=== PATIENT | male | born 1940 | race Caucasian/White ===

== ENCOUNTER 2023-03-20 11:25 | Inpatient (IN) | payer MEDICAID, SELFPAY ==
[2023-03-20] VITALS (8 sets, daily range): BP systolic 115–168; BP diastolic 67–87; PULSE 57–70; RESP 16–24; TEMP 36.1–36.7; O2SAT 94–97; BMI 22.3
--- NOTE | 2023-03-20 11:39 | EKG12_ITS ---
Test Reason : SYNCOPE Blood Pressure : / mmHG Vent. Rate : 056 BPM Atrial Rate : 056 BPM P-R Int : 204 ms QRS Dur : 098 ms QT Int : 484 ms P-R-T Axes : 103 -45 032 degrees QTc Int : 467 ms Sinus bradycardia Left anterior fascicular block Minimal voltage criteria for LVH, may be normal variant ( R in aVL ) Abnormal ECG Confirmed by EVE PAULSON, LATOSHA ([id number]), medical editor ANNA BEST ([id number]) on 03/21/2023 11:03:46 AM Referred By: Confirmed By:LATOSHA PRADO MD
--- NOTE | 2023-03-20 11:50 | EX.ED.DYSGE1 ---
HPI History of Present Illness Chief Complaint: Syncope Informant: patient and spouse/S.O. Onset/Context/Timing Onset: Today Context: Gradual Onset Current Severity: Mild Maximum Severity: Moderate Narrative Narrative: 82-year-old [place] male history of Parkinson's disease. 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 He was not doing any work. [place] lightheaded and crawled back into the house. is here today had no complaints of pain just felt weak. He denies any headache, chest pain, shortness of breath. He denies any abdominal pain. No nausea, vomiting or diarrhea. No fever or melena. Once he got back in a house he passed out for multiple minutes. No prior history of syncopal events. No cardiac history. No recent med changes. No recent illness or hospitalization according to he and the family. Prior similar symptoms: No Recent Illness/Hospitalization: No [facility] Medical History Arthritis Bipolar 1 disorder Elbow fracture, left Hearing problem History of back problems Pelvic fracture Home Medications alprazolam 1 mg tablet 0.5 - 1 mg (0.5 - 1 x 1 mg) PO DAILY PRN anxiety #30 tabs 02/28/23 [Rx Last Taken Unknown] carbidopa 25 mg-levodopa 100 mg tablet 2 tab PO TID 02/28/23 [History Last Taken Unknown] carbidopa ER 50 mg-levodopa 200 mg tablet,extended release 1 tab PO QHS 02/28/23 [History Last Taken Unknown] escitalopram oxalate 20 mg tablet 20 mg PO DAILY #90 tabs 02/28/23 [Rx Last Taken Unknown] escitalopram oxalate 5 mg tablet 5 mg PO DAILY #90 tabs 02/28/23 [Rx Last Taken Unknown] etodolac 400 mg tablet ea PO 02/28/23 [History Last Taken Unknown] lamotrigine 200 mg tablet 200 mg PO QHS 90 days #90 tabs 02/28/23 [Rx Last Taken Unknown] levothyroxine 25 mcg tablet tablet PO 02/28/23 [History Last Taken Unknown] quetiapine 25 mg tablet 25 mg PO QHS 90 days #90 tabs 02/28/23 [Rx Last Taken Unknown] Allergy/AdvReac Type Severity Reaction Status Date / Time No Known Allergies Allergy Verified 03/20/23 11:27 Family History Other Anxiety Cancer Diabetes Myocardial infarction Social History Smoking Status: Never smoker alcohol intake: never substance use type: does not use what type of physical activity do you participate in: none ROS ROS ED ROS Narrative Patient denies recent illness Review of Systems ROS Unobtainable: Denies due to encephalopathy Constitutional Constitutional ED: Denies chills or fever(s) Eyes Eyes: Denies blurry vision ENT ENT ED: Denies ear pain Cardiovascular Cardiovascular: Denies chest pain Respiratory/Chest Respiratory/Chest: Denies cough or dyspnea Gastrointestinal Gastrointestinal: Denies abdominal pain Genitourinary Genitourinary ED: Denies dysuria or hematuria Musculoskeletal Musculoskeletal: Denies arthralgias Integumentary Denies abscess or Abrasions Neurologic Neurologic: Denies headache(s) Psychiatric Psychiatric: Denies anxiety Endocrine Endocrinology: Denies cold intolerance Hematologic/Lymphatic Hematologic/Lymphatic: Reports none Allergic/Immunologic Allergic/Immunologic ED: Denies mouth swelling or tongue swelling EXAM Physical Exam Narrative Exam Narrative: Well-appearing 82-year-old male. Vital signs stable afebrile. He does not appear septic toxic in any distress. H EENT exam unremarkable. Atraumatic. Moist with members. Neck nontender no lymphadenopathy. Lungs clear to auscultation bilaterally. Heart regular rhythm no murmur rate about 62. Chest wall nontender ribs nontender. Abdomen soft nontender. Pelvic girdle intact. Moving all 4 extremities. Nontender no edema. Neurologically is awake alert. He is answering questions and following commands. No focal motor deficits. Const Vital Signs: 03/20/23 11:29 03/20/23 11:32 03/20/23 11:35 Temperature 97.4 F L Temperature Source Temporal Pulse Rate 60 Pulse Rate [Lying] 61 Pulse Rate [Sitting (for 1 minute prior to obtaining)] 59 L Pulse Rate [Standing (for 1 minute prior to obtaining)] 66 Respiratory Rate 16 Respiratory Effort Normal Non-Labored Respiratory Pattern Normal Blood Pressure 130/67 H Blood Pressure [Lying] 128/67 H Blood Pressure [Sitting (for 1 minute prior to obtaining)] 118/76 Blood Pressure [Standing (for 1 minute prior to obtaining)] 115/68 Blood Pressure Mean 88 Blood Pressure Mean [Lying] 87 Blood Pressure Mean [Sitting (for 1 minute prior to obtaining)] 90 Blood Pressure Mean [Standing (for 1 minute prior to obtaining)] 83 Pulse Ox 97 Oxygen Delivery Method Room Air 03/20/23 11:51 Temperature Temperature Source Pulse Rate Pulse Rate [Lying] Pulse Rate [Sitting (for 1 minute prior to obtaining)] Pulse Rate [Standing (for 1 minute prior to obtaining)] Respiratory Rate Respiratory Effort Respiratory Pattern Blood Pressure Blood Pressure [Lying] Blood Pressure [Sitting (for 1 minute prior to obtaining)] Blood Pressure [Standing (for 1 minute prior to obtaining)] Blood Pressure Mean Blood Pressure Mean [Lying] Blood Pressure Mean [Sitting (for 1 minute prior to obtaining)] Blood Pressure Mean [Standing (for 1 minute prior to obtaining)] Pulse Ox Oxygen Delivery Method Room Air Positive well nourished and well developed; Negative for obese, cachectic, contractures or unkempt General Appearance ED: well developed and NAD; Negative for unkempt, cachectic, contractures, cyanotic or diaphoretic Nutritional Appearance: Negative for cachectic or obese HEENT Reports moist mucous membranes; Denies dry mucous membranes Negative for trauma or tenderness Mouth ED: No dry mucous membranes Mouth: No dry mucous membranes Eyes PERRL and EOMs intact bilaterally General Eye ED: Negative for pale conjunctiva or scleral icterus Neck no lymphadenopathy, supple and no JVD General: Negative for tenderness Lymph Lymphatic: Negative for other Chest Wall inspection of chest normal and palpation of chest normal Chest: Negative for other Resp normal respiratory effort and clear to auscultation bilaterally Effort and Inspection: Negative for retractions, pain with movement or other Auscultation: Negative for rales, rhonchi or wheezes Cardio regular rate, regular rhythm, S1 normal heart sound, S2 normal heart sound and no murmurs GI normal to inspection, nondistended, normoactive bowel sounds, non-tender, non-distended and no masses Inspection: Negative for abdominal distention Auscultation: normoactive bowel sounds Palpation: soft; Negative for tender or guarding Back/Spine no CVA tenderness General Back: Negative for CVA tenderness Cervical Spine: Negative for cervical spine tenderness Thoracic Spine / Upper Back: Negative for thoracic spinal tenderness Lumbar Spine / Lower Back: Negative for lumbar spinal tenderness Extremity normal to inspection General Extremety ED: Negative for edema or tenderness General Extremity: Negative for edema Neuro oriented x3 and CN's II-XII intact bilaterally Sensorium / Orientation: alert; Negative for orientation impaired, lethargic or stuporous Sensory Exam: No sensory level loss detected Motor Exam: strength 5/5 throughout Psych mental status grossly normal Appearance: Negative for unkempt Attitude: No agitated Mood & Affect: Negative for depressed, anxious or tearful Skin no rashes or lesions noted and no wounds General Skin Exam: elasticity normal Lesions: No lesion noted Rashes: No rashes noted Trauma: Negative for abrasion MDM MDM MDM Narrative Medical decision making narrative: 82-year-old male with a syncopal episode at home. When squad arrived he was hypotensive with a systolic blood pressure in the 80s. They gave him almost a liter of fluid and now is normotensive. Denies any complaints other than feeling lightheaded before the event. He has had no recent illness. No recent hospitalization. No prior history of syncope before. Her undergone cardiac work-up. He will most likely need to be admitted for observation to rule out dysrhythmia or other etiology. Repeat exam patient is doing well at 12:55 PM. I went over test results with him and family. I will speak to the hospitalist about admission. History & Record Review Discussion w/independent historian: Patient and Friend Additional record(s) reviewed:: Prior inpatient record, Prior outpatient record, Prior ED visit and Prior labs Lab Data Attestation: I reviewed the patient's lab results. Lab results narrative: CBC shows a white count of 6. H&H 11.9 and 33.8. Platelets are 316. Electrolytes show sodium is low of 127. Gap at 9. BUN and creatinine 23 and 1.45. Glucose 130. Troponin is normal at 7. No prior labs available in our system for comparison. Labs: Laboratory Results - last 24 hr 03/20/23 10:55 WBC 6.7 RBC 3.47 L Hgb 11.9 L Hct 33.8 L MCV 97.4 H MCH 34.3 H MCHC 35.2 RDW Std Deviation 42.7 RDW Coeff of Morena 12.0 Plt Count 316 MPV 8.8 Immature Gran % (Auto) 0.900 Neut % (Auto) 65.8 Lymph % (Auto) 14.6 L [place] % (Auto) 9.9 Eos % (Auto) 8.1 H Baso % (Auto) 0.7 Absolute Neuts (auto) 4.4 Absolute Lymphs (auto) 0.98 Nucleated RBC % 0 Sodium 127 L Potassium 4.3 Chloride 91 L Carbon Dioxide 27.0 Anion Gap 9 BUN 23 H Creatinine 1.45 H Est GFR (MDRD) Af Amer 60 Est GFR (MDRD) Non-Af 49 L BUN/Creatinine Ratio 15.9 Glucose 130 H Calcium 9.5 Troponin I High Sens 7 Radiography Chest X-Ray - ED: 1 View, Read by ED Physician, Read by Radiologist, Heart, Lungs, Mediastinum, Bony Structures, No Acute Disease and Chronic Changes Diagnostic Testing: Clinical Impression(s) from Imaging Studies Chest X-Ray 03/20/23 12:15 IMPRESSION: No active disease. Electronically Signed: Wilver Veloz MD at 12:45 EDT , Chest x-ray, portable, single view shows no acute abnormality. Normal cardiac silhouette. Normal mediastinum. Normal lung sheriff. Chronic changes. Interpreted both by myself and radiologist and we agree. Rhythm Strip Rhythm Strip: Sinus bradycardia Rate: 56 Ectopy: None EKG Initial EKG: Attestation: I personally reviewed and interpreted this EKG as follows: Interpretation: Sinus Bradycardia Comments: Sinus bradycardia rate of 56 no acute signs of ND or ischemia. Discharge Plan Triage Chief Complaint: Syncope Other Complaint: Weakness ED Provider: Lonnie Carvajal Dx/Rx/DC Orders Clinical Impression: History of Parkinson's disease, History of bipolar disorder, Acute renal insufficiency, Syncope, Acute hyponatremia Prescriptions: No Action etodolac 400 mg tablet PO Patient Comments: TAKE ONE TABLET BY MOUTH TWICE DAILY WITH meals carbidopa-levodopa 50-200 mg tablet extended release 1 tab PO QHS Patient Comments: TAKE ONE TABLET BY MOUTH AT 9PM DIRECTED levothyroxine 25 mcg tablet PO carbidopa-levodopa 25-100 mg tablet 2 tab PO TID alprazolam 1 mg tablet 0.5 - 1 mg PO DAILY PRN (Reason: anxiety) Qty: 30 2RF escitalopram oxalate 5 mg tablet 5 mg PO DAILY Qty: 90 1RF Rx Instructions: To be taken with 20 mg tablet for total daily dose of 25 mg escitalopram oxalate 20 mg tablet 20 mg PO DAILY Qty: 90 1RF Rx Instructions: To be taken with 5mg tablet for total daily dose of 25 mg lamotrigine 200 mg tablet 200 mg PO QHS 90 Days Qty: 90 1RF quetiapine 25 mg tablet 25 mg PO QHS 90 Days Qty: 90 1RF Primary Care Provider: Thiago Sharp Referrals: Thiago Sharp MD [Primary Care Provider] - Disposition Disposition: Acute Care Hospital [facility]
[2023-03-20 11:51] LABS: Absolute Lymphocyte Count 0.98 X10^3/uL (0.83-4.51); Absolute Neutrophil Count 4.4 X10^3/uL (2.0-7.7); Basophil# 0.05 X10^3/uL; Basophil% 0.7 % (0-1); Eosinophil# 0.54 X10^3/uL; Eosinophils% 8.1 % (0-5); Hematocrit 33.8 % (40-54); Hemoglobin 11.9 g/dL (13.0-16.5); Lymphocyte # 0.98 X10^3/ul (0.83-4.51); Lymphocyte % 14.6 % (19-41); Mean Corp Hgb Conc 35.2 g/dL (32-36); Mean Corpuscular Hgb 34.3 pg (27.0-32.0); Mean Corpuscular Volume 97.4 fL (80-94); Mean Platelet Vol. 8.8 fl (6.2-12.0); Monocyte# 0.66 X10^3/uL; Monocyte% 9.9 % (0-10); NRBC Flagged by Analyzer 0 % (0-5); Neutrophil % 65.8 % (47-70); Platelet Count 316 K/mm3 (150-450); RBC Distribution Width SD 42.7 fl (35.1-43.9); Red Blood Count 3.47 M/mm3 (4.6-6.2); White Blood Count 6.7 K/mm3 (4.4-11.0)
[2023-03-20 12:08] LABS: Anion Gap 9 (5-15); BUN 23 mg/dL (7-18); BUN/Creat Ratio 15.9 RATIO (10-20); Calcium,Total 9.5 mg/dL (8.5-10.1); Chloride 91 mmol/L (98-107); Creatinine, Serum 1.45 mg/dL (0.70-1.30); EST Glomerular Filtration Rate 49 mL/min (>60); Est Glom Filt Rate - Afr Amer 60 mL/min (>60); Glucose 130 mg/dL (74-106); Potassium 4.3 mmol/L (3.5-5.1); Sodium Level 127 mmol/L (136-145); Troponin-I HS 7 pg/mL (3.0-78.0)
--- NOTE | 2023-03-20 12:15 | RAD_ITS ---
STUDY: X-RAY CHEST REASON FOR EXAM: Male, 82 years old. chest pain TECHNIQUE: Single AP portable view of the chest. COMPARISON: None. FINDINGS: The lungs are clear and expanded. There is no demonstrated pleural abnormality. Normal size heart. Normal mediastinum and elan. Normal visualized pulmonary arteries. There is atherosclerotic tortuosity of the aortic arch and descending thoracic aorta. Normal visualized thoracic spine. Normal visualized ribs, clavicles, and shoulders. There is no demonstrated abnormality of the visualized soft tissue structures of the upper abdomen. RAD/Chest 1 View (Portable) IMPRESSION: No active disease. Electronically Signed: Wilver Veloz MD at 12:45 EDT ,
--- NOTE | 2023-03-20 14:06 | HP.PCM.HOS_ITS ---
HPI - General General Date of Admission: 03/20/23 Date of Service: 03/20/23 Chief Complaint: Syncopal episode HPI Narrative CHI EDWARDS, is a 82-year-old male history of Parkinson's disease and ?bipolar disorder presented to [facility] 03/20/2023 with episode of weakness and loss of consciousness. 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 EMS presented and systolic blood pressure was in the 80s and he was brought to the ED. In route he received almost 1 L and his blood pressures were within normal limits. No previous [facility] labs available but he was noted to have a sodium of 127 and a creatinine of 1.45 with a normal troponin. Hospitalist consulted for admission. Evaluated patient with family at bedside and he reports he remembers being in the field and feeling lightheaded and going down but a lot from then until he passed out was somewhat hazy. He then passed out and family anticipates this was for at least a couple minutes and then he came to and was slightly confused but began improving. Patient denied any pain other than some shoulder pain over the past several weeks when he lifts his arm but no shortness of breath or chest pain. Family bedside did report that he had labs done on Sunday through his PCPs office and they are not sure of the results but they know that he does have chronic hyponatremia though they are unsure the level and they did not get the results of the labs but will try to tomorrow. They are unaware of any kind of problem with his kidneys. They do report that he recently had his carbidopa levodopa increased from 1.5 to 2 mg 3 times a day with a dose at bedtime. Additionally he takes Xanax, Lamictal, Seroquel at bedtime and after taking the medication a couple days ago to really before bedtime had a hard time getting up and even walking to bed they report these other medications are chronic and are to help him sleep. [facility] Medical History (Updated 03/20/23 @ 17:[address] Ethel Cordon MD) Arthritis Bipolar 1 disorder Elbow fracture, left Hearing problem History of back problems Hypothyroidism Parkinson disease Pelvic fracture Home Medications alprazolam 1 mg tablet 0.5 - 1 mg (0.5 - 1 x 1 mg) PO DAILY PRN anxiety #30 tabs 02/28/23 [Rx Last Taken 03/19/23] carbidopa 25 mg-levodopa 100 mg tablet 2 tab PO TID . 02/28/23 [History Last Taken 03/20/23] carbidopa ER 50 mg-levodopa 200 mg tablet,extended release 1 tab PO QHS . 02/28/23 [History Last Taken 03/19/23] escitalopram oxalate 20 mg tablet 20 mg PO DAILY . #90 tabs 02/28/23 [Rx Last Taken 03/20/23] escitalopram oxalate 5 mg tablet 5 mg PO DAILY . #90 tabs 02/28/23 [Rx Last Taken 03/20/23] etodolac 400 mg tablet 400 mg PO BIDCM . 02/28/23 [History Last Taken 03/20/23] lamotrigine 200 mg tablet 200 mg PO QHS . 90 days #90 tabs 02/28/23 [Rx Last Taken 03/19/23] levothyroxine 25 mcg tablet 25 mcg PO DAILY THYROID 02/28/23 [History Last Taken 03/20/23] quetiapine 25 mg tablet 25 mg PO QHS . 90 days #90 tabs 02/28/23 [Rx Last Taken 03/19/23] Allergy/AdvReac Type Severity Reaction Status Date / Time No Known Allergies Allergy Verified 03/20/23 11:27 Family History Other Anxiety Cancer Diabetes Myocardial infarction Social History Smoking Status: Never smoker alcohol intake: never substance use type: does not use what type of physical activity do you participate in: none ROS ROS Narrative General: Denies fever/chills HENT: Denies headache, denies stuffy nose, denies sore throat EYES: Denies changes in vision Resp: Denies cough, denies shortness of breath Cardiac: Denies chest pain GI: Denies abdominal pain, denies changes in bowel, denies nausea/vomiting : Denies changes in urination Extremity: Denies swelling MSK: Denies weakness Neuro: Denies any numbness/tingling Heme: Denies any bleeding or bruising Skin: Denies rashes Psychiatric: No complaints voiced Vital Signs Vital Signs Vital Signs: 03/20/23 11:29 03/20/23 11:32 03/20/23 11:35 Temperature 97.4 F L Temperature Source Temporal Pulse Rate 60 Pulse Rate [Lying] 61 Pulse Rate [Sitting (for 1 minute prior to obtaining)] 59 L Pulse Rate [Standing (for 1 minute prior to obtaining)] 66 Respiratory Rate 16 Respiratory Effort Normal Non-Labored Respiratory Pattern Normal Blood Pressure 130/67 H Blood Pressure [Lying] 128/67 H Blood Pressure [Sitting (for 1 minute prior to obtaining)] 118/76 Blood Pressure [Standing (for 1 minute prior to obtaining)] 115/68 Blood Pressure Mean 88 Blood Pressure Mean [Lying] 87 Blood Pressure Mean [Sitting (for 1 minute prior to obtaining)] 90 Blood Pressure Mean [Standing (for 1 minute prior to obtaining)] 83 Pulse Ox 97 Oxygen Delivery Method Room Air 03/20/23 11:51 03/20/23 12:30 03/20/23 13:32 Temperature Temperature Source Pulse Rate 58 L 58 L Pulse Rate [Lying] Pulse Rate [Sitting (for 1 minute prior to obtaining)] Pulse Rate [Standing (for 1 minute prior to obtaining)] Respiratory Rate 19 H 24 H Respiratory Effort Respiratory Pattern Blood Pressure 161/81 H 161/87 H Blood Pressure [Lying] Blood Pressure [Sitting (for 1 minute prior to obtaining)] Blood Pressure [Standing (for 1 minute prior to obtaining)] Blood Pressure Mean 107 111 Blood Pressure Mean [Lying] Blood Pressure Mean [Sitting (for 1 minute prior to obtaining)] Blood Pressure Mean [Standing (for 1 minute prior to obtaining)] Pulse Ox Oxygen Delivery Method Room Air 03/20/23 13:32 Temperature 97 F L Temperature Source Temporal Pulse Rate 58 L Pulse Rate [Lying] Pulse Rate [Sitting (for 1 minute prior to obtaining)] Pulse Rate [Standing (for 1 minute prior to obtaining)] Respiratory Rate 17 Respiratory Effort Respiratory Pattern Blood Pressure 161/87 H Blood Pressure [Lying] Blood Pressure [Sitting (for 1 minute prior to obtaining)] Blood Pressure [Standing (for 1 minute prior to obtaining)] Blood Pressure Mean 111 Blood Pressure Mean [Lying] Blood Pressure Mean [Sitting (for 1 minute prior to obtaining)] Blood Pressure Mean [Standing (for 1 minute prior to obtaining)] Pulse Ox Oxygen Delivery Method Physical Exam Narrative General: Alert, oriented, no apparent distress HEENT: Atraumatic, normocephalic Eyes: Anicteric, normal conjunctiva, extraocular movements grossly intact Neck: Supple Respiratory: Clear to auscultation bilaterally, normal respiratory effort Cardiovascular: Regular rate and rhythm GI: Soft, nontender, nondistended Extremities: No edema Musculoskeletal: Moving all extremities Neuro: No overt focal neurological deficits Skin: No rashes appreciated Psych: Cooperative Results Lab / Micro Data 03/20/23 10:55 03/20/23 10:55 Labs: Laboratory Results - last 24 hr 03/20/23 10:55: WBC 6.7, RBC 3.47 L, Hgb 11.9 L, Hct 33.8 L, MCV 97.4 H, MCH 34.3 H, MCHC 35.2, RDW Std Deviation 42.7, RDW Coeff of Morena 12.0, Plt Count 316, MPV 8.8, Immature Gran % (Auto) 0.900, Neut % (Auto) 65.8, Lymph % (Auto) 14.6 L , [place] % (Auto) 9.9, Eos % (Auto) 8.1 H, Baso % (Auto) 0.7, Absolute Neuts (auto) 4.4, Absolute Lymphs (auto) 0.98, Nucleated RBC % 0, Sodium 127 L, Potassium 4.3, Chloride 91 L, Carbon Dioxide 27.0, Anion Gap 9, BUN 23 H, Creatinine 1.45 H, Est GFR (MDRD) Af Amer 60, Est GFR (MDRD) Non-Af 49 L, BUN/Creatinine Ratio 15.9, Glucose 130 H, Calcium 9.5, Troponin I High Sens 7 Rhythm Strip Rhythm Strip: Sinus bradycardia Rate: 56 Ectopy: None Radiology Impression Chest X-Ray 03/20/23 12:15 IMPRESSION: No active disease. Electronically Signed: Wilver Veloz MD at 12:45 EDT , Assessment & Plan Assessment/Plan (1) Syncope: (2) History of Parkinson's disease: (3) Bipolar 1 disorder: (4) Hyponatremia: PLAN: Plan #Dizziness and syncopal episode -Was found by EMS to have SBP in the 80s, given his multiple medications and his likely autonomic instability with his Parkinson's suspect that this is combi nation of medication and underlying disorder however will admit to telemetry and pursue further work-up -EKG with sinus rhythm heart rate of 56 and left anterior fascicular block, QTc 467 -Patient awake and alert in ED -Orthostats negative -We will obtain echocardiogram -Monitor for recurrence of symptoms -We will attempt to see baseline labs from PCP to assess acuity of his sodium however suspect this is chronic -Also check TSH as patient is on Synthroid #Hyponatremia -Per family this is chronic -We will try to get baseline value -Urine studies ordered for better assessment -Do not think patient needs urgent change given he is currently mentating well and there is another reason that likely explains his loss of consciousness and lightheadedness aside from hyponatremia #STEPH versus CKD -We will attempt to see what baseline creatinine is -Does not appear particularly dehydrated but had received fluids in the ED -Will give slightly more gentle hydration and recheck values in a.m. as well -If not better can further pursue work-up #Parkinson's disease -Continue home medications at this time and monitoring vitals #Bipolar disorder -Based on problem list -Does take several home medications, these have been continued at this time however would benefit from decreasing polypharmacy as this may have been a contributing factor but will rule out other etiologies first #Hypothyroidism -Suspect hypothyroidism given patient is on Synthroid, will check TSH -Continue Synthroid #DVT ppx: Lovenox subcu Ethel Cordon MD Time spent in the patient's overall evaluation,decision-making process, review of diagnostic data, adjustment of management, discussion with other providers, nursing nursing and ancillary staff involved in patient's care documentation, 60 minutes Charges/Coding Visit Charges Inpatient E&M: 24019 Init Hosp L2
--- NOTE | 2023-03-20 14:34 | ECHOD_ITS ---
Reason For Study: SYNCOPE Procedure This was a 2D Doppler, Color Flow transthoracic echocardiogram. Exam performed portable in patient room. Left Ventricle Normal LV size. The estimated ejection fraction is 65 %. No evidence for diastolic dysfunction. No regional wall motion abnormalities noted. Right Ventricle Normal RV size. Normal systolic function. Atria Normal left atrium. Normal right atrium. No doppler evidence for ASD. Mitral Valve There is no mitral valve stenosis. Trivial mitral valve insufficiency. Tricuspid Valve There is no tricuspid stenosis. Trivial tricuspid valve insufficiency. Pulmonary artery systolic pressure is 35 mmHg. Aortic Valve Trisinus/trileaflet aortic valve. Aortic sclerosis, no stenosis. There is no aortic stenosis. No aortic valve insufficiency. Pulmonic Valve There is no pulmonic valvular stenosis. No pulmonic valve insufficiency. Great Vessels Normal aortic root. Pericardium/Pleural No pericardial effusion. MMode/2D Measurements & Calculations LVIDd: 4.5 cm IVSd: 0.91 cm LVOT diam: 2.0 cm LVIDs: 3.0 cm LVPWd: 0.91 cm LVOT area: 3.1 cm2 FS: 34.0 % LAV(MOD-bp): 38.4 ml LVAd ap4: 26.7 cm2 SV(MOD-sp4): 41.8 ml LAV(MOD-bp) Indexed: 21.1 ml/m2 LVLd ap4: 7.9 cm LAV(MOD-sp2): 48.9 ml EDV(MOD-sp4): 73.4 ml LAV(MOD-sp4): 30.1 ml EDV(sp4-el): 76.4 ml LVAs ap4: 15.7 cm2 LVLs ap4: 6.8 cm ESV(MOD-sp4): 31.6 ml ESV(sp4-el): 31.1 ml EF(MOD-sp4): 56.9 % EF(sp4-el): 59.3 % SV(sp4-el): 45.3 ml LA A4 area: 12.9 cm2 LA dimension(2D): 3.4 cm RA A4 area: 13.5 cm2 Time Measurements MV dec time: 0.17 sec Doppler Measurements & Calculations MV E max hima: 81.5 cm/sec Lat Peak E' Hima: 7.3 cm/sec Med Peak E' Hima: 8.9 cm/sec MV A max hima: 67.4 cm/sec E/E' lat: 11.1 E/E' med: 9.1 MV E/A: 1.2 MV V2 max: 77.9 cm/sec Ao V2 max: 116.8 cm/sec MV max P.4 mmHg MV dec slope: 651.4 cm/sec2 Ao max P.5 mmHg MV V2 mean: 45.5 cm/sec Ao V2 mean: 82.2 cm/sec MV mean P.98 mmHg Ao mean P.1 mmHg MV V2 VTI: 33.8 cm Ao V2 VTI: 30.1 cm AV (velocity ratio): 0.68 MVA(VTI): 1.9 cm2 MARGARET(I,D): 2.1 cm2 MARGARET(V,D): 2.4 cm2 LV V1 max: 89.6 cm/sec SV(LVOT): 63.4 ml TR max hima: 276.9 cm/sec LV V1 max P.2 mmHg TR max P.7 mmHg LV V1 mean P.7 mmHg LV V1 mean: 61.1 cm/sec LV V1 VTI: 20.5 cm ECHO/Echo Complete Interpretation Summary The estimated ejection fraction is 65 %. No evidence for diastolic dysfunction. Trivial mitral valve insufficiency. Ordering Physician: Ethel Cordon Referring Physician: Thiago Sharp M.D. Performed By: Brinda Armstrong RCS
[2023-03-20] MEDS: 0.9% Normal Saline 1,000 ML 100 ML IV (14:48)
[2023-03-20] MEDS: Carbidopa/Levodopa 25/100 Tablet PO (17:07)
[2023-03-20 20:44] LABS: Bacteria 0 SEEN /hpf (None Seen); Mucous, Urine 0 SEEN /hpf (<or=2+); Red Blood Cells-Urine 0 SEEN /hpf (0-5); Squamous Epithelial Cells - UA 0 SEEN /hpf (0-5); White Blood Cells 0 SEEN /hpf (0-5)
[2023-03-20 20:51] LABS: Color, Urine Yellow (Yellow); Glucose, Dipstick Normal (Normal); Ketone-Dipstick Negative (Negative); Leukocyte Esterase-Dipstick Negative /ul (Negative); Nitrite-Dipstick Negative (Negative); Occult Blood-Urine Negative /ul (Negative); Protein-Dipstick Negative (Negative); Urine Clarity Clear (Clear); Urine Urobilinogen Normal (Normal)
[2023-03-20 20:54] LABS: Urea Nitrogen, Urine 356 mg/dL (NO RANGE EST.); Urine Chloride 103 mmol/L (Not Establ.); Urine Sodium 83 mmol/L (Not Establ.)
[2023-03-20 21:00] LABS: Urine Bilirubin Dipstick 3 mg/dL (Negative)
[2023-03-20 21:09] LABS: Osmolality, Urine 390 mOsm/KG
[2023-03-20] MEDS: CARBIDOPA/LEVODOPA CR 50/200 Tablet PO (21:12)
[2023-03-20] MEDS: lamoTRIgine 100 MG Tablet 200 MG PO (21:12)
[2023-03-20] MEDS: QUEtiapine 25 MG Tablet PO (21:12)
[2023-03-21 03:00] VITALS: BP 119/71; PULSE 57; RESP 16; TEMP 36.7; O2SAT 92
[2023-03-21] MEDS: Carbidopa/Levodopa 25/100 Tablet PO ×3 (05:15→17:37)
[2023-03-21] MEDS: Levothyroxine 25 MCG TABLET PO (05:15)
[2023-03-21 05:17] VITALS: BMI 22.6
[2023-03-21 05:52] LABS: Absolute Lymphocyte Count 0.96 X10^3/uL (0.83-4.51); Absolute Neutrophil Count 4.4 X10^3/uL (2.0-7.7); Basophil# 0.04 X10^3/uL; Basophil% 0.6 % (0-1); Eosinophils% 6.1 % (0-5); Hematocrit 31.1 % (40-54); Hemoglobin 10.9 g/dL (13.0-16.5); Lymphocyte # 0.96 X10^3/ul (0.83-4.51); Lymphocyte % 14.5 % (19-41); Mean Corpuscular Hgb 33.9 pg (27.0-32.0); Mean Corpuscular Volume 96.6 fL (80-94); Mean Platelet Vol. 8.7 fl (6.2-12.0); Monocyte# 0.81 X10^3/uL; Monocyte% 12.3 % (0-10); NRBC Flagged by Analyzer 0 % (0-5); Neutrophil # 4.35 X10^3/uL (2.7-7.7); Neutrophil % 65.9 % (47-70); Platelet Count 269 K/mm3 (150-450); RBC Distribution Width CV 11.9 % (11.6-14.6); RBC Distribution Width SD 41.7 fl (35.1-43.9); Red Blood Count 3.22 M/mm3 (4.6-6.2); White Blood Count 6.6 K/mm3 (4.4-11.0)
[2023-03-21 07:04] LABS: AST(SGOT) 13 U/L (15-37); Alanine Aminotransfer ALT/SGPT < 6 U/L (16-61); Albumin, Serum 2.8 g/dL (3.2-5.0); Alkaline Phosphatase 61 U/L (45-117); Anion Gap 5 (5-15); BUN 20 mg/dL (7-18); BUN/Creat Ratio 18.5 RATIO (10-20); Bilirubin, Direct 0.18 mg/dL (0.00-0.30); Calcium,Total 8.6 mg/dL (8.5-10.1); Chloride 94 mmol/L (98-107); Creatinine, Serum 1.08 mg/dL (0.70-1.30); EST Glomerular Filtration Rate 69 mL/min (>60); Est Glom Filt Rate - Afr Amer 84 mL/min (>60); Estimated Creatinine Clearance 51.84 ml/min; Globulin 3.9 g/dL (2.2-4.2); Glucose 97 mg/dL (74-106); Magnesium 1.6 mg/dL (1.6-2.6); Potassium 4.1 mmol/L (3.5-5.1); Protein, Total 6.7 g/dL (6.4-8.2); Sodium Level 126 mmol/L (136-145); T4 Free Direct 1.11 ng/dL (0.76-1.46); Thyroid Stim Hormone (TSH) 4.04 uIU/mL (0.358-3.74)
[2023-03-21 08:31] LABS: Osmolality, Serum 266 mOsm/KG (280-301)
[2023-03-21 09:30] VITALS: BP 150/85; PULSE 67; RESP 16; TEMP 36.9; O2SAT 99
[2023-03-21 09:39] VITALS: BP 137/86; BP 150/85; BP 156/88; PULSE 66; PULSE 71; PULSE 80
--- NOTE | 2023-03-21 11:38 | PN.HOSP_ITS ---
Reason for Visit Reason for Visit: Diagnoses Hypo-osmolality and hyponatremia (03/20/23) Bipolar disorder, unspecified (03/20/23) Syncope and collapse (03/20/23) Personal history of other diseases of the nervous system and sense organs (03/20/23) Subjective Subjective Patient with no acute complaints today and denies chest pain, shortness of dori ath, fluttering in chest. Did have difficulty eating banana earlier and was made n.p.o. with speech eval Objective Data Objective Data Vital Signs: Vital Signs Temp Pulse Resp BP Pulse Ox O2 Del Method 98.1 F 80 16 137/86 H 92 Room Air 03/21/23 03:00 03/21/23 09:39 03/21/23 03:00 03/21/23 09:39 03/21/23 03:00 03/21/23 03:00 Oxygen Delivery Method Room Air Weight: 69.5 kg Body Mass Index (BMI) 22.6 Intake & Output: Intake and Output for Last 24 Hours 03/19/23 03/20/23 03/21/23 23:59 23:59 23:59 Intake Total 240 / 240 1733.33 / 1733.33 Output Total 650 / 650 675 / 675 Balance -410 / -410 1058.33 / 1058.33 Lab / Micro Data 03/21/23 05:41 03/21/23 05:41 Labs: Laboratory Results - last 24 hr 03/20/23 10:55: WBC 6.7, RBC 3.47 L, Hgb 11.9 L, Hct 33.8 L, MCV 97.4 H, MCH 34.3 H, MCHC 35.2, RDW Std Deviation 42.7, RDW Coeff of Morena 12.0, Plt Count 316, MPV 8.8, Immature Gran % (Auto) 0.900, Neut % (Auto) 65.8, Lymph % (Auto) 14.6 L , [place] % (Auto) 9.9, Eos % (Auto) 8.1 H, Baso % (Auto) 0.7, Absolute Neuts (auto) 4.4, Absolute Lymphs (auto) 0.98, Nucleated RBC % 0, Sodium 127 L, Potassium 4.3, Chloride 91 L, Carbon Dioxide 27.0, Anion Gap 9, BUN 23 H, Creatinine 1.45 H, Est GFR (MDRD) Af Amer 60, Est GFR (MDRD) Non-Af 49 L, BUN/Creatinine Ratio 15.9, Glucose 130 H, Calcium 9.5, Troponin I High Sens 7 03/20/23 20:30: Urine Color Yellow, Urine Clarity Clear, Urine pH 7.0, Ur Specific Palmer 1.010, Urine Protein Negative, Urine Glucose (UA) Normal, Urine Ketones Negative, Urine Occult Blood Negative, Urine Nitrite Negative, Urine Bilirubin 3 H, Urine Urobilinogen Normal, Ur Leukocyte Esterase Negative, Urine RBC 0 SEEN, Urine WBC 0 SEEN, Ur Squamous Epith Cells 0 SEEN, Urine Bacteria 0 SEEN, Urine Mucus 0 SEEN, Urine Osmolality 390, Ur Random Sodium 83, Urine Creatinine 44.40, Urine Potassium 40.0, Urine Chloride 103, Urine Urea Nitrogen 356 03/21/23 05:41: WBC 6.6, RBC 3.22 L, Hgb 10.9 L, Hct 31.1 L, MCV 96.6 H, MCH 33.9 H, MCHC 35.0, RDW Std Deviation 41.7, RDW Coeff of Morena 11.9, Plt Count 269, MPV 8.7, Immature Gran % (Auto) 0.600, Neut % (Auto) 65.9, Lymph % (Auto) 14.5 L , [place] % (Auto) 12.3 H, Eos % (Auto) 6.1 H, Baso % (Auto) 0.6, Absolute Neuts (auto) 4.4, Absolute Lymphs (auto) 0.96, Nucleated RBC % 0, Sodium 126 L, Potassium 4.1, Chloride 94 L, Carbon Dioxide 27.0, Anion Gap 5, BUN 20 H, Creatinine 1.08, Estim Creat Clear Calc 51.84, Est GFR (MDRD) Af Amer 84, Est GFR (MDRD) Non-Af 69, BUN/Creatinine Ratio 18.5, Glucose 97, Serum Osmolality 266 L, Calcium 8.6, Magnesium 1.6, Total Bilirubin 0.70, Direct Bilirubin 0.18, AST 13 L, ALT < 6 L, Alkaline Phosphatase 61, Total Protein 6.7, Albumin 2.8 L, Globulin 3.9, TSH 4.04 H, Free T4 1.11, Cortisol 19.90 Radiography Diagnostic Testing: Radiology Impression Chest X-Ray 03/20/23 12:15 IMPRESSION: No active disease. Electronically Signed: Wilver Veloz MD at 12:45 EDT , Rhythm Strip Rhythm Strip: Sinus bradycardia Rate: 56 Ectopy: None Physical Exam Narrative General: Alert, no apparent distress HEENT: Atraumatic, normocephalic Eyes: Anicteric, normal conjunctiva, extraocular movements grossly intact Neck: Supple Respiratory: Clear to auscultation bilaterally, normal respiratory effort Cardiovascular: Regular rate and rhythm at time of exam GI: Soft, nontender, nondistended Extremities: No edema Musculoskeletal: Moving all extremities Neuro: No overt focal neurological deficits Skin: No rashes appreciated Psych: Cooperative Assessment & Plan Assessment/Plan (1) Syncope: (2) History of Parkinson's disease: (3) Bipolar 1 disorder: (4) Hyponatremia: PLAN: Plan #Dizziness and syncopal episode -Was found by EMS to have SBP in the 80s, given his multiple medications and his likely autonomic instability with his Parkinson's suspect that this is combination of medication and underlying disorder however will admit to telemetry and pursue further work-up -EKG with sinus rhythm heart rate of 56 and left anterior fascicular block, QTc 467 -Patient awake and alert in ED -Orthostats negative -We will obtain echocardiogram -Monitor for recurrence of symptoms -We will attempt to see baseline labs from PCP to assess acuity of his sodium however suspect this is chronic -Also check TSH as patient is on Synthroid -03/21: Patient with some intermittent bradycardia and what appears to be sinus arrhythmia on telemetry overnight, patient reports being asymptomatic, has had no further presyncopal or syncopal episodes and symptoms did not recur with standing. PT/OT eval's. Awaiting echocardiogram, continue to monitor on telemetry, will likely need 30-day monitor on discharge #Hyponatremia -Per family this is chronic -We will try to get baseline value -Urine studies ordered for better assessment -Do not think patient needs urgent change given he is currently mentating well and there is another reason that likely explains his loss of consciousness and lightheadedness aside from hyponatremia -03/21: Slight decrease in sodium to 126 today. Serum osmolality was 266, TSH 4.04 but with free T4.11. Cortisol 19.9. UA unremarkable, urine osmole's 390 with a urine sodium of 83. 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 as well -If not better can further pursue work-up -03/21: Improved with fluids, continue to hold etodolac #Parkinson's disease -Continue home medications at this time and monitoring vitals #Bipolar disorder -Based on problem list -Does take several home medications, these have been continued at this time however would benefit from decreasing polypharmacy as this may have been a c ontributing factor but will rule out other etiologies first #Hypothyroidism -Suspect hypothyroidism given patient is on Synthroid, will check TSH -Continue Synthroid -03/21: TSH very slightly elevated but free T4 within normal limits, continue current Synthroid dose #DVT ppx: Lovenox subcu Ethel Cordon MD Time spent in the patient's overall evaluation,decision-making process, review of diagnostic data, adjustment of management, discussion with other providers, nursing nursing and ancillary staff involved in patient's care documentation, 37 minutes Charges/Coding Visit Charges Inpatient E&M: 13402 Subs Hosp L3
[2023-03-21] MEDS: Escitalopram Oxalate 10 MG Tablet 5 MG PO (13:05)
[2023-03-21] MEDS: Escitalopram Oxalate 20 MG Tablet PO (13:06)
[2023-03-21] MEDS: Enoxaparin 40 MG/0.4 ML Syringe SC (13:06)
--- NOTE | 2023-03-21 15:23 | CASEMGMT ---
RN?CM?RADIATION CONTROL SPECIALIST?CM?to room to meet with patient and family for initial transition planning/care coordination?assessment.?RN?CM?introduced self and role at [facility].? Pt and family voice understanding and consent to?assessment?at this time.? Pt resting in bed in no distress at this time.? Pt is A/O at this time, but is SAXMAN. , Angelita, and dtr, Michelle, @ bedside and provided most of the following information.? Care providers, pharmacy, and demographics verified/updated at this time. PCP: Dr Hernandez Specialists: Dr Ruiz-neuro. Dr Bojorquez-psychiatry Preferred Pharmacy: [facility] Retail Insurance: [employer] Prescription Benefit:?yes Living Will/HPOA:?Pt does not currently have LW/HCPOA LNOK: , Angelita. Dtr, Michelle. Dtr, Jaylin. Living Arrangements: Lives w/ and dtr, Michelle, in one-story home w/one small step to enter. @ baseline, pt uses cane and is indep w/ADL's. manages meds and sets up weekly pill containers. [place] [employer] manages appts. Family does grocery shopping, meals, and home mgnt tasks. Transportation: Hire drivers. DME: Has the following DME:?cane and grab bars. Also has a walker, but does not use. Dtr, Michelle, states pt very shaky/unsteady today and she is concerned about pt being able to get into his home @ discharge, stating he has a distance to walk on the sidewalk from the driveway to the house. Michelle asking about pt getting a W/C. RN CM spoke w/PT, Lorraine, who states a WC would be beneficial for pt for longer distances for pt's safety. HHC/SNF: No hx of either. Discussed options of RU/SNF and HHC. Initially dtr states they would like to try and take pt home and would like [facility] HHC and declined wanting list of other HHC options at this time. Then, upon further discussion, Michelle and state they may be interested in [facility] RU and decline wanting list of other RU/SNF options at this time. Michelle states they will discuss RU w/pt and with the family tonight. [place] states she will not coming back in tomorrow and asks for RN CM to f/u with pt's dtr, Jaylin, who will be coming in tomorrow, re: pt/family's decision at that time. CM?to follow for any further discharge planning/needs.? Pt and family voice no further concerns/needs at this time.? PLAN:??TBD. [facility] vs [facility] and a W/C. Nick BSN?RN?CM
[2023-03-21 15:46] VITALS: BP 119/72; PULSE 66; RESP 16; TEMP 36.6; O2SAT 100
[2023-03-21] MEDS: QUEtiapine 25 MG Tablet PO (21:47)
[2023-03-21] MEDS: lamoTRIgine 100 MG Tablet 200 MG PO (21:47)
[2023-03-21] MEDS: CARBIDOPA/LEVODOPA CR 50/200 Tablet PO (21:49)
[2023-03-21 21:50] VITALS: BP 132/76; PULSE 58; RESP 18; TEMP 36.7; O2SAT 99
[2023-03-22 05:23] VITALS: BMI 22.5
[2023-03-22] MEDS: Levothyroxine 25 MCG TABLET PO (05:38)
[2023-03-22] MEDS: Carbidopa/Levodopa 25/100 Tablet PO ×3 (05:38→15:56)
[2023-03-22 07:10] LABS: Anion Gap 9 (5-15); BUN 15 mg/dL (7-18); BUN/Creat Ratio 15.9 RATIO (10-20); Calcium,Total 8.7 mg/dL (8.5-10.1); Chloride 91 mmol/L (98-107); Creatinine, Serum 0.94 mg/dL (0.70-1.30); EST Glomerular Filtration Rate 81 mL/min (>60); Est Glom Filt Rate - Afr Amer 98 mL/min (>60); Estimated Creatinine Clearance 59.39 ml/min; Glucose 103 mg/dL (74-106); Potassium 3.4 mmol/L (3.5-5.1); Sodium Level 125 mmol/L (136-145)
[2023-03-22 09:00] VITALS: BP 140/83; PULSE 60; RESP 18; TEMP 36.7; O2SAT 95
[2023-03-22] MEDS: Enoxaparin 40 MG/0.4 ML Syringe SC (10:08)
[2023-03-22] MEDS: Escitalopram Oxalate 10 MG Tablet 5 MG PO (10:08)
[2023-03-22] MEDS: Escitalopram Oxalate 20 MG Tablet PO (10:08)
[2023-03-22] MEDS: Potassium Chloride 10mEq/100mL 10 MEQ/100 ML IV.SOLN. 100 MEQ IV BOLUS ×2 (10:09→11:39)
[2023-03-22] MEDS: 0.9% Saline Lock 10 ML Syringe IV ×2 (10:34→11:39)
--- NOTE | 2023-03-22 12:46 | CASEMGMT ---
SW checked with [facility] Acute Rehab and they are full. SW met with patient, his , and daughter. SW introduced self and role at [facility]. SW asked about d/c plan and patient's said she was hoping patient could go to the Rehab Unit at [facility]. SW let patient and family know that there are no openings on the Acute Rehab Unit. SW explained that the next closest rehab unit would be in [place] or SW could give them a list of senior living facilities that accept patient's insurance. Family requested a list of senior living facilities. ERNESTO asked Lakisha d/c materials planning manager to please prepare a list for patient and family. Maggie Bourgeois INTERNAL COMMUNICATIONS MANAGER STEVE
--- NOTE | 2023-03-22 13:01 | CASEMGMT ---
Discharge Planning SNF list created and given to SW. Lakisha Wylie, Discharge Planning Asst.
--- NOTE | 2023-03-22 13:04 | CASEMGMT ---
SW provided patient and family with a list of snf facility providers including quality and resource use data and consistent with patient?s preferred geographic region, medical needs, and insurance network were provided from the [employer] Guide. SW explained they will need to pick a few facilities they would be okay with and SW will contact facilities to check on bed availability. SW told them SW will check back. Maggie Bourgeois HADOOP ADMINISTRATOR STEVE
--- NOTE | 2023-03-22 13:10 | PN.HOSP_ITS ---
Reason for Visit Reason for Visit: Diagnoses Hypo-osmolality and hyponatremia (03/20/23) Bipolar disorder, unspecified (03/20/23) Syncope and collapse (03/20/23) Personal history of other diseases of the nervous system and sense organs (03/20/23) Subjective Subjective Patient reports feeling fairly well today but has been still feeling somewhat weak all over, patient and family open to SNF for rehab Objective Data Objective Data Vital Signs: Vital Signs Temp Pulse Resp BP Pulse Ox O2 Del Method 98.1 F 60 18 140/83 H 95 Room Air 03/22/23 09:00 03/22/23 09:00 03/22/23 09:00 03/22/23 09:00 03/22/23 09:00 03/22/23 09:00 Oxygen Delivery Method Room Air Weight: 69.3 kg Body Mass Index (BMI) 22.5 Intake & Output: Intake and Output for Last 24 Hours 03/20/23 03/21/23 03/22/23 23:59 23:59 23:59 Intake Total 240 / 240 2633.33 / 2633.33 500 / 500 Output Total 650 / 650 2100 / 2700 900 / 900 Balance -410 / -410 533.33 / -66.67 -400 / -400 Lab / Micro Data 03/21/23 05:41 03/22/23 06:35 Labs: Laboratory Results - last 24 hr 03/22/23 06:35: Sodium 125 L, Potassium 3.4 L, Chloride 91 L, Carbon Dioxide 25.0, Anion Gap 9, BUN 15, Creatinine 0.94, Estim Creat Clear Calc 59.39, Est GFR (MDRD) Af Amer 98, Est GFR (MDRD) Non-Af 81, BUN/Creatinine Ratio 15.9, Glucose 103, Calcium 8.7 Radiography Diagnostic Testing: Radiology Impression Echocardiogram 03/20/23 14:34 Interpretation Summary The estimated ejection fraction is 65 %. No evidence for diastolic dysfunction. Trivial mitral valve insufficiency. Ordering Physician: Ethel Cordon Referring Physician: Thiago Sharp M.D. Performed By: Brinda Armstrong RCS Rhythm Strip Rhythm Strip: Sinus bradycardia Rate: 56 Ectopy: None Physical Exam Narrative General: Alert, no apparent distress HEENT: Atraumatic, normocephalic Eyes: Anicteric, normal conjunctiva, extraocular movements grossly intact Neck: Supple Respiratory: Clear to auscultation bilaterally, normal respiratory effort Cardiovascular: Regular rate and rhythm at time of exam GI: Soft, nontender, nondistended Extremities: No edema Musculoskeletal: Moving all extremities Neuro: No overt focal neurological deficits Skin: No rashes appreciated Psych: Cooperative Assessment & Plan Assessment/Plan (1) Syncope: (2) History of Parkinson's disease: (3) Bipolar 1 disorder: (4) Hyponatremia: PLAN: Plan #Dizziness and syncopal episode -Was found by EMS to have SBP in the 80s, given his multiple medications and his likely autonomic instability with his Parkinson's suspect that this is combination of medication and underlying disorder however will admit to telemetry and pursue further work-up -EKG with sinus rhythm heart rate of 56 and left anterior fascicular block, QTc 467 -Patient awake and alert in ED -Orthostats negative -We will obtain echocardiogram -Monitor for recurrence of symptoms -We will attempt to see baseline labs from PCP to assess acuity of his sodium ho wever suspect this is chronic -Also check TSH as patient is on Synthroid -03/21: Patient with some intermittent bradycardia and what appears to be sinus arrhythmia on telemetry overnight, patient reports being asymptomatic, has had no further presyncopal or syncopal episodes and symptoms did not recur with standing. PT/OT eval's. Awaiting echocardiogram, continue to monitor on telemetry, will likely need 30-day monitor on discharge -03/22: Echocardiogram unrevealing, patient will have intermittent heart rates in 50s but no long pauses or sustained low heart rates with symptoms, blood pressure has been stable here. Suspect that, especially given prolonged period of dizziness with ultimate syncopal episode and patient found to be hypotensive that this was either arrhythmia or hypotension related incident fact it was hypotension secondary to autonomic dysfunction due to his Parkinson's and d ehydration given his STEPH. Patient has had no further episodes, the Xanax has been held here but due to risk for decompensation have continued his other home psychiatric medications but this has not seemed to negatively impact him at this time. Will likely need 30-day monitor on DC #Hyponatremia -Per family this is chronic -We will try to get baseline value -Urine studies ordered for better assessment -Do not think patient needs urgent change given he is currently mentating well and there is another reason that likely explains his loss of consciousness and lightheadedness aside from hyponatremia -03/21: Slight decrease in sodium to 126 today. Serum osmolality was 266, TSH 4.04 but with free T4.11. Cortisol 19.9. UA unremarkable, urine osmole's 390 with a urine sodium of 83. 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 as well -If not better can further pursue work-up -03/21: Improved with fluids, continue to hold etodolac -03/22: Creatinine 1.45 on presentation is trended down to 0.94 #Parkinson's disease -Continue home medications at this time and monitoring vitals #Bipolar disorder -Based on problem list -Does take several home medications, these have been continued at this time however would benefit from decreasing polypharmacy as this may have been a contributing factor but will rule out other etiologies first -03/22: Holding Xanax, other home medications have been continued and patient has not had recurrence of symptoms #Hypothyroidism -Suspect hypothyroidism given patient is on Synthroid, will check TSH -Continue Synthroid -03/21: TSH very slightly elevated but free T4 within normal limits, continue current Synthroid dose #DVT ppx: Lovenox subcu Ethel Cordon, MD Charges/Coding Visit Charges Inpatient E&M: 33584 Subs Hosp L2
[2023-03-22 15:00] VITALS: BP 145/85; PULSE 65; RESP 16; TEMP 37; O2SAT 97
--- NOTE | 2023-03-22 15:50 | CASEMGMT ---
Discharge Planning Referral sent to both [facility] and [facility] via [facility]. Lakisha Wylie, Discharge Planning Asst.
[2023-03-22] MEDS: Acetaminophen 325 MG Tablet 650 MG PO (19:42)
[2023-03-22 21:00] VITALS: BP 153/94; PULSE 77; RESP 16; TEMP 36.6; O2SAT 94
[2023-03-22] MEDS: lamoTRIgine 100 MG Tablet 200 MG PO (21:13)
[2023-03-22] MEDS: QUEtiapine 25 MG Tablet PO (21:14)
[2023-03-22 22:00] VITALS: PULSE 65
[2023-03-22] MEDS: CARBIDOPA/LEVODOPA CR 50/200 Tablet PO (22:27)
[2023-03-22] MEDS: ALPRAZolam 0.5 MG Tablet PO (22:27)
[2023-03-23 03:00] VITALS: BP 106/71; PULSE 65; RESP 16; TEMP 36.1; O2SAT 95
[2023-03-23 06:00] VITALS: BMI 22.7
[2023-03-23] MEDS: Levothyroxine 25 MCG TABLET PO (06:21)
[2023-03-23] MEDS: Carbidopa/Levodopa 25/100 Tablet PO ×3 (06:21→17:06)
[2023-03-23 07:14] LABS: Anion Gap 6 (5-15); BUN 14 mg/dL (7-18); Calcium,Total 8.6 mg/dL (8.5-10.1); Chloride 89 mmol/L (98-107); Creatinine, Serum 1.08 mg/dL (0.70-1.30); EST Glomerular Filtration Rate 69 mL/min (>60); Est Glom Filt Rate - Afr Amer 84 mL/min (>60); Estimated Creatinine Clearance 52.14 ml/min; Glucose 113 mg/dL (74-106); Sodium Level 123 mmol/L (136-145)
[2023-03-23 09:00] VITALS: BP 129/76; PULSE 60; RESP 18; TEMP 36.9; O2SAT 97
[2023-03-23] MEDS: Escitalopram Oxalate 20 MG Tablet PO (09:16)
[2023-03-23] MEDS: Enoxaparin 40 MG/0.4 ML Syringe SC (09:17)
[2023-03-23] MEDS: Escitalopram Oxalate 10 MG Tablet 5 MG PO (09:17)
[2023-03-23 10:08] LABS: Osmolality, Serum 259 mOsm/KG (280-301)
--- NOTE | 2023-03-23 10:20 | CASEMGMT ---
Both [facility] patient. SW spoke with patient and his family and they decided to go with [facility]. ERNESTO explained patient will stay in the hospital until insurance approves him to go to SNF. ERNESTO explained patient could possibly be at [facility] through the weekend. Plan: [facility] pending pre-cert. Maggie WILSON
--- NOTE | 2023-03-23 10:23 | CASEMGMT ---
Discharge Planning Patient has chosen [facility]. Updates sent via [employer] and asked that pre-cert be submitted. [facility] notified that patient has chosen another provider. Lakisha Wylie, Discharge Planning Asst.
[2023-03-23 15:00] VITALS: BP 122/70; PULSE 64; RESP 18; TEMP 37.1
--- NOTE | 2023-03-23 15:07 | CASEMGMT ---
Patient was approved to go to [facility]. ERNESTO notified physician and family. SW completed PASRR on patient in [facility] system. Plan: d/c to [facility] under skilled level of care on a PASRR level of care. Maggie Bourgeois AIRPORT MAINTENANCE CHIEF STEVE
--- NOTE | 2023-03-23 15:21 | PN.HOSP_ITS ---
Reason for Visit Reason for Visit: Diagnoses Hypo-osmolality and hyponatremia (03/20/23) Bipolar disorder, unspecified (03/20/23) Syncope and collapse (03/20/23) Personal history of other diseases of the nervous system and sense organs (03/20/23) Subjective Subjective Feeling somewhat more tired today but received a Xanax overnight, did report a slight catch when he would take a deep breath on the upper left side of his chest that comes and goes but denies any other chest pain, dizziness, lightheadedness, shortness of breath or cough Objective Data Objective Data Vital Signs: Vital Signs Temp Pulse Resp BP Pulse Ox O2 Del Method 97.0 F L 65 16 106/71 95 Room Air 03/23/23 03:00 03/23/23 03:00 03/23/23 03:00 03/23/23 03:00 03/23/23 03:00 03/23/23 03:00 Oxygen Delivery Method Room Air Weight: 69.9 kg Body Mass Index (BMI) 22.7 Intake & Output: Intake and Output for Last 24 Hours 03/21/23 03/22/23 03/23/23 23:59 23:59 23:59 Intake Total 2633.33 / 2633.33 600 / 600 Output Total 2100 / 2700 1200 / 1400 300 / 300 Balance 533.33 / -66.67 -600 / -800 -300 / -300 Lab / Micro Data 03/21/23 05:41 03/23/23 06:11 Labs: Laboratory Results - last 24 hr 03/23/23 06:11: Sodium 123 L, Potassium 4.0, Chloride 89 L, Carbon Dioxide 28.0, Anion Gap 6, BUN 14, Creatinine 1.08, Estim Creat Clear Calc 52.14, Est GFR (MDRD) Af Amer 84, Est GFR (MDRD) Non-Af 69, BUN/Creatinine Ratio 13.0, Glucose 113 H, Serum Osmolality 259 L, Calcium 8.6 Rhythm Strip Rhythm Strip: Sinus bradycardia Rate: 56 Ectopy: None Physical Exam Narrative General: Alert, no apparent distress HEENT: Atraumatic, normocephalic Eyes: Anicteric, normal conjunctiva, extraocular movements grossly intact Neck: Supple Respiratory: Clear to auscultation bilaterally, normal respiratory effort Cardiovascular: Regular rate and rhythm at time of exam GI: Soft, nontender, nondistended Extremities: No edema Musculoskeletal: Moving all extremities Neuro: No overt focal neurological deficits Skin: No rashes appreciated Psych: Cooperative Assessment & Plan Assessment/Plan (1) Syncope: (2) History of Parkinson's disease: (3) Bipolar 1 disorder: (4) Hyponatremia: PLAN: Plan #Dizziness and syncopal episode -Was found by EMS to have SBP in the 80s, given his multiple medications and his likely autonomic instability with his Parkinson's suspect that this is combination of medication and underlying disorder however will admit to tel emetry and pursue further work-up -EKG with sinus rhythm heart rate of 56 and left anterior fascicular block, QTc 467 -Patient awake and alert in ED -Orthostats negative -We will obtain echocardiogram -Monitor for recurrence of symptoms -We will attempt to see baseline labs from PCP to assess acuity of his sodium however suspect this is chronic -Also check TSH as patient is on Synthroid -03/21: Patient with some intermittent bradycardia and what appears to be sinus arrhythmia on telemetry overnight, patient reports being asymptomatic, has had no further presyncopal or syncopal episodes and symptoms did not recur with standing. PT/OT eval's. Awaiting echocardiogram, continue to monitor on tel emetry, will likely need 30-day monitor on discharge -03/22: Echocardiogram unrevealing, patient will have intermittent heart rates in 50s but no long pauses or sustained low heart rates with symptoms, blood pressure has been stable here. Suspect that, especially given prolonged period of dizziness with ultimate syncopal episode and patient found to be hypotensive that this was either arrhythmia or hypotension related incident fact it was hypotension secondary to autonomic dysfunction due to his Parkinson's and dehydration given his STEPH. Patient has had no further episodes, the Xanax has been held here but due to risk for decompensation have continued his other home psychiatric medications but this has not seemed to negatively impact him at this time. Will likely need 30-day monitor on DC -03/23: Patient has had no further episodes, 30-day monitor DC, would advise against Xanax at all possible as this may contribute to low blood pressure #Hyponatremia -Per family this is chronic -We will try to get baseline value -Urine studies ordered for better assessment -Do not think patient needs urgent change given he is currently mentating well and there is another reason that likely explains his loss of consciousness and lightheadedness aside from hyponatremia -03/21: Slight decrease in sodium to 126 today. Serum osmolality was 266, TSH 4.04 but with free T4.11. Cortisol 19.9. UA unremarkable, urine osmole's 390 with a urine sodium of 83. 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 -03/22: Sodium 125 today, review of outlying facility records show sodium of 126 recently, will start fluid restriction and trend BMP, may need change in psychiatric medication regimen if this does not improve but would prefer to defer to physician who will be following him and making further adjustments and monitoring -03/23: Did downtrend further, repeating urine studies, discussed that we may need to taper off his Lexapro pending results. 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 as well -If not better can further pursue work-up -03/21: Improved with fluids, continue to hold etodolac -03/22: Creatinine 1.45 on presentation is trended down to 0.94 -03/23: Overall stable #Parkinson's disease -Continue home medications at this time and monitoring vitals #Bipolar disorder -Based on problem list -Does take several home medications, these have been continued at this time however would benefit from decreasing polypharmacy as this may have been a contributing factor but will rule out other etiologies first -03/22: Holding Xanax, other home medications have been continued and patient has not had recurrence of symptoms -03/23: Was given Xanax last night and was more sleepy today, will decrease dose to make as needed however would be best to avoid this if possible #Hypothyroidism -Suspect hypothyroidism given patient is on Synthroid, will check TSH -Continue Synthroid -03/21: TSH very slightly elevated but free T4 within normal limits, continue current Synthroid dose #DVT ppx: Lovenox subcu Ethel Cordon MD Charges/Coding Visit Charges Inpatient E&M: 65519 Subs Hosp L2
[2023-03-23] MEDS: Polyethylene Glycol 3350 17 GM PACKET PO (17:07)
[2023-03-23] MEDS: Acetaminophen 325 MG Tablet 650 MG PO (18:50)
--- NOTE | 2023-03-23 18:56 | EKG12_ITS ---
Test Reason : CHEST PAIN Blood Pressure : / mmHG Vent. Rate : 064 BPM Atrial Rate : 064 BPM P-R Int : 184 ms QRS Dur : 098 ms QT Int : 444 ms P-R-T Axes : 060 -45 027 degrees QTc Int : 458 ms Sinus rhythm with Premature atrial complexes with Aberrant conduction Left anterior fascicular block Minimal voltage criteria for LVH, may be normal variant ( R in aVL ) Abnormal ECG When compared with ECG of 20-MAR-2023 11:54, Aberrant conduction is now Present Confirmed by EVE PAULSON, LATOSHA ([id number]), photography editor ANNA BEST ([id number]) on 03/27/2023 12:23:05 PM Referred By: LAUREN Confirmed By:LATOSHA PRADO MD
--- NOTE | 2023-03-23 18:57 | NURSING ---
Patient was lying in bed with eyes closed for approximately 60 minutes. Woke up to complaining of chest pain that is just left of sternum around rib 3 to 5. Patient unable to rate pain no matter what examples are given. Family at bedside and attempting to get information off him in their language. Skin is warm and dry. Pulse is 65 and regular Respirations 18. O2 applied at 2L nasal cannula. Patient given Tylenol per prn orders and stat EKG ordered.
[2023-03-23 19:07] VITALS: BP 154/88; PULSE 65; RESP 18; TEMP 37.1; O2SAT 98
[2023-03-23 20:40] VITALS: BP 155/90; PULSE 56; RESP 16; TEMP 37.1; O2SAT 98
[2023-03-23] MEDS: CARBIDOPA/LEVODOPA CR 50/200 Tablet PO (22:12)
[2023-03-23] MEDS: ALPRAZolam 0.5 MG Tablet 0.25 MG PO (22:12)
[2023-03-23] MEDS: QUEtiapine 25 MG Tablet PO (22:12)
[2023-03-23] MEDS: lamoTRIgine 100 MG Tablet 200 MG PO (22:13)
[2023-03-24 03:00] VITALS: BP 145/80; PULSE 63; RESP 16; TEMP 36.4; O2SAT 94
[2023-03-24 05:35] VITALS: BMI 22.7
[2023-03-24] MEDS: Levothyroxine 25 MCG TABLET PO (05:36)
[2023-03-24] MEDS: Carbidopa/Levodopa 25/100 Tablet PO ×3 (05:36→17:16)
[2023-03-24 07:59] LABS: Anion Gap 8 (5-15); BUN 13 mg/dL (7-18); BUN/Creat Ratio 11.9 RATIO (10-20); Calcium,Total 8.8 mg/dL (8.5-10.1); Chloride 86 mmol/L (98-107); Creatinine, Serum 1.09 mg/dL (0.70-1.30); EST Glomerular Filtration Rate 69 mL/min (>60); Est Glom Filt Rate - Afr Amer 83 mL/min (>60); Estimated Creatinine Clearance 51.59 ml/min; Glucose 114 mg/dL (74-106); Sodium Level 121 mmol/L (136-145)
[2023-03-24] MEDS: Escitalopram Oxalate 20 MG Tablet PO (08:47)
[2023-03-24] MEDS: Enoxaparin 40 MG/0.4 ML Syringe SC (08:47)
[2023-03-24] MEDS: Escitalopram Oxalate 10 MG Tablet 5 MG PO (08:47)
[2023-03-24 09:00] VITALS: BP 126/82; PULSE 87; RESP 18; TEMP 36.4; O2SAT 93
--- NOTE | 2023-03-24 12:20 | PCM.PN.HOSP ---
Reason for Visit Reason for Visit: Diagnoses Hypo-osmolality and hyponatremia (03/20/23) Bipolar disorder, unspecified (03/20/23) Syncope and collapse (03/20/23) Personal history of other diseases of the nervous system and sense organs (03/20/23) Objective Data Objective Data Vital Signs: Vital Signs Temp Pulse Resp BP Pulse Ox O2 Del Method O2 Flow Rate 97.6 F L 87 18 126/82 H 93 Room Air 2 03/24/23 09:00 03/24/23 09:00 03/24/23 09:00 03/24/23 09:00 03/24/23 09:00 03/24/23 10:00 03/23/23 19:07 Oxygen Flow Rate (L/min) 2 Oxygen Delivery Method Room Air Weight: 153 lb 14.122 oz Body Mass Index (BMI) 22.7 Intake & Output: Intake and Output for Last 24 Hours 03/22/23 03/23/23 03/24/23 23:59 23:59 23:59 Intake Total 600 / 600 1680 / 1680 Output Total 1200 / 1400 300 / 300 Balance -600 / -800 1380 / 1380 Lab / Micro Data 03/21/23 05:41 03/24/23 06:55 Labs: Laboratory Results - last 24 hr 03/24/23 06:55: Sodium 121 L, Potassium 4.0, Chloride 86 L, Carbon Dioxide 27.0, Anion Gap 8, BUN 13, Creatinine 1.09, Estim Creat Clear Calc 51.59, Est GFR (MDRD) Af Amer 83, Est GFR (MDRD) Non-Af 69, BUN/Creatinine Ratio 11.9, Glucose 114 H, Calcium 8.8 Rhythm Strip Rhythm Strip: Sinus bradycardia Rate: 56 Ectopy: None Physical Exam Narrative Seen and examined. Does not have any particular complaint. Patient has history of Parkinson disease and mood disorder. Physical exam General: Alert, Oriented x3, Cooperative HEENT: Atraumatic, PERRLA, EOMI, Normocephalic Oral: Oral mucosa dry. No Gingival or Mucosal Lesions/ Ulcerations Neck: Supple, No JVD, Negative Carotid Bruits Lungs: Air entry diminished in bilateral lung bases. No crepitation/rhonchi Cardiovascular: Regular rate, Regular Rhythm, Normal S1, Normal S2, No murmurs Abdomen: Bowel Sounds Present, Soft, Non Tender, Non-Distended : No renal angle tenderness. No suprapubic tenderness. Extremities: No edema, Capillary Refill Less than 3 Seconds Skin: No rashes, No breakdown Musculoskeletal: No Tenderness to Palpation of Joints or Extremities. Bilateral knee arthritis. Mild muscle stiffness at knee and hip joints. Neurological: Cranial nerves II-XII grossly intact, DTR 2+/4 and Symmetrical, Neuro grossly intact Psych/Mental Status: Flat affect Assessment & Plan Assessment/Plan (1) Syncope: (2) History of Parkinson's disease: (3) Bipolar 1 disorder: (4) Hyponatremia: PLAN: Plan This is a 82-year-old male was admitted with lightheadedness and syncopal episode with hypotension, SBP in the 80s. BP improved with IV fluid. #Dizziness and syncopal episode most likely due to hypotension/autonomic dysfunction due to Parkinson's disease. -EKG with sinus rhythm heart rate of 56 and left anterior fascicular block, QTc 467 -Patient awake and alert in ED -Orthostats negative -Cardiac telemetry also shows intermittent bradycardia. Sinus arrhythmia. 2D echo shows EF 65% with no evidence for?likely associated with trivial MR. Will need 30-day event monitor. No Xanax #Chronic hyponatremia Sodium decreased from 126-121 today. Serum osmolality was 266, TSH 4.04 but with free T 4.11. Cortisol 19.9. UA unremarkable, urine osmole's 390 with a urine sodium of 83. There was suspicion of SIADH in the past but patient is dehydrated therefore started on IV fluid. Monitor BMP. 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 Improved to creatinine 1.09. STEPH resolved. - #Parkinson's disease -Continue home medications at this time and monitoring vitals #Bipolar disorder -Based on problem list -Does take several home medications, these have been continued at this time however would benefit from decreasing polypharmacy as this may have been a contributing factor but will rule out other etiologies first Holding Xanax, other home medications have been continued and patient has not had recurrence of symptoms #Hypothyroidism -Suspect hypothyroidism given patient is on Synthroid, will check TSH -Continue Synthroid TSH very slightly elevated but free T4 within normal limits, continue current Synthroid dose #DVT ppx: Lovenox subcu Charges/Coding Visit Charges Inpatient E&M: 18520 Subs Hosp L2
[2023-03-24] MEDS: 0.9% Normal Saline 1,000 ML 75 ML IV (13:02)
[2023-03-24 14:09] VITALS: BP 118/68; PULSE 68; RESP 18; TEMP 36.7
[2023-03-24 16:22] LABS: Urine Chloride 94 mmol/L (Not Establ.); Urine Sodium 81 mmol/L (Not Establ.)
[2023-03-24 16:36] LABS: Urea Nitrogen, Urine 319 mg/dL (NO RANGE EST.)
[2023-03-24 17:04] LABS: Osmolality, Urine 357 mOsm/KG
[2023-03-24 21:12] VITALS: BP 141/92; PULSE 75; RESP 18; TEMP 36.6; O2SAT 94
[2023-03-24] MEDS: QUEtiapine 25 MG Tablet PO (21:27)
[2023-03-24] MEDS: lamoTRIgine 100 MG Tablet 200 MG PO (21:28)
[2023-03-24] MEDS: CARBIDOPA/LEVODOPA CR 50/200 Tablet PO (21:29)
[2023-03-24] MEDS: ALPRAZolam 0.5 MG Tablet 0.25 MG PO (21:29)
[2023-03-25] MEDS: 0.9% Normal Saline 1,000 ML 75 ML IV (02:31)
[2023-03-25 03:51] VITALS: BMI 22.6
[2023-03-25 03:52] VITALS: BP 158/79; PULSE 63; RESP 16; TEMP 36.5; O2SAT 97
[2023-03-25] MEDS: Carbidopa/Levodopa 25/100 Tablet PO ×2 (06:30→10:29)
[2023-03-25] MEDS: Levothyroxine 25 MCG TABLET PO (06:30)
[2023-03-25 07:28] LABS: Anion Gap 7 (5-15); BUN 13 mg/dL (7-18); BUN/Creat Ratio 12.9 RATIO (10-20); Calcium,Total 8.5 mg/dL (8.5-10.1); Chloride 89 mmol/L (98-107); Creatinine, Serum 1.01 mg/dL (0.70-1.30); EST Glomerular Filtration Rate 75 mL/min (>60); Est Glom Filt Rate - Afr Amer 91 mL/min (>60); Estimated Creatinine Clearance 55.51 ml/min; Glucose 100 mg/dL (74-106); Potassium 3.9 mmol/L (3.5-5.1); Sodium Level 121 mmol/L (136-145)
--- NOTE | 2023-03-25 08:18 | PCM.TXEXTCAR ---
Diet Diet Order/Speech Therapy: 03/21/23 12:15 Diet: Regular - General Food consistency:: Regular Liquid Consistency:: Regular/Thin Is pt able to select menu?: Yes Diet Comments: Dist-Sup.-family ok to sup., Upper&Lower dentition @ meals. Large pills cut Routine Orders/Code Status Code Status: DNRCC-A Therapies Weight Bearing: Weight bearing as tolerated Extremity Affected:: Bilateral Lower Physical Therapy: Eval and Treat Occupational Therapy: Eval and Treat Speech Therapy: Eval and Treat Problem/Diagnosis (1) Syncope: Status: Acute Code(s): R55 - Syncope and collapse (2) History of Parkinson's disease: Status: Acute Code(s): Z86.69 - Personal history of other diseases of the nervous system and sense organs (3) Bipolar 1 disorder: Status: Acute Code(s): F31.9 - Bipolar disorder, unspecified (4) Hyponatremia: Status: Acute Code(s): E87.1 - Hypo-osmolality and hyponatremia Plan This is a 82-year-old male was admitted with lightheadedness and syncopal episode with hypotension, SBP in the 80s. BP improved with IV fluid. #Dizziness and syncopal episode most likely due to hypotension/autonomic dysfunction due to Parkinson's disease. -EKG with sinus rhythm heart rate of 56 and left anterior fascicular block, QTc 467 -Patient awake and alert in ED -Orthostats negative -Cardiac telemetry also shows intermittent bradycardia. Sinus arrhythmia. 2D echo shows EF 65% with no evidence for?likely associated with trivial MR. Will need 30-day event monitor. No Xanax #Chronic hyponatremia Sodium decreased from 126-121 today. Serum osmolality was 266, TSH 4.04 but with free T 4.11. Cortisol 19.9. UA unremarkable, urine osmole's 390 with a urine sodium of 83. There was suspicion of SIADH in the past but patient is dehydrated therefore started on IV fluid. Monitor BMP. 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 Improved to creatinine 1.09. STEPH resolved. - #Parkinson's disease -Continue home medications at this time and monitoring vitals #Bipolar disorder -Based on problem list -Does take several home medications, these have been continued at this time however would benefit from decreasing polypharmacy as this may have been a contributing factor but will rule out other etiologies first Holding Xanax, other home medications have been continued and patient has not had recurrence of symptoms #Hypothyroidism -Suspect hypothyroidism given patient is on Synthroid, will check TSH -Continue Synthroid TSH very slightly elevated but free T4 within normal limits, continue current Synthroid dose #DVT ppx: Lovenox subcut. Allergies/Procedures Done in Hospital Allergies No Known Allergies Allergy (Verified 03/20/23 11:27) Type of Care/Length of Stay Estimated LOS: Convalescent Care Less Than 30 days Type of Care Needed: Skilled Rehab Potential: Good Prognosis: Good Additional Orders/Day of Discharge Day of Discharge: 03/25/23 Discharge Plan Admission Admit Date/Time: 03/20/23 14:05 Attending Provider: Kenny Yang Primary Care Provider: Brad Hernandez Consulting Providers: Etehl Cordon Discharge Orders/Prescriptions Prescriptions: New polyethylene glycol 3350 17 gram Powder In Packet 17 g PO BID Qty: 0 0RF sennosides-docusate sodium [Stool Softener-Stimulant Laxat] 8.6-50 mg Tablet 2 tab PO BID PRN PRN (Reason: Constipation) Qty: 0 0RF Continued carbidopa-levodopa 50-200 mg tablet extended release 1 tab PO QHS Patient Comments: TAKE ONE TABLET BY MOUTH AT 9PM DIRECTED levothyroxine 25 mcg tablet 25 mcg PO DAILY carbidopa-levodopa 25-100 mg tablet 2 tab PO TID Patient Comments: DOSE INCREASE BY PCP TO 2 TID escitalopram oxalate 5 mg tablet 5 mg PO DAILY Qty: 90 1RF Rx Instructions: To be taken with 20 mg tablet for total daily dose of 25 mg escitalopram oxalate 20 mg tablet 20 mg PO DAILY Qty: 90 1RF Rx Instructions: To be taken with 5mg tablet for total daily dose of 25 mg lamotrigine 200 mg tablet 200 mg PO QHS 90 Days Qty: 90 1RF quetiapine 25 mg tablet 25 mg PO QHS 90 Days Qty: 90 1RF alprazolam 1 mg tablet 0.5 mg PO QHS Changed etodolac 400 mg tablet 400 mg PO BIDCM PRN (Reason: arthritis pain) 30 Days Qty: 30 0RF Patient Comments: TAKE ONE TABLET BY MOUTH TWICE DAILY WITH meals Referrals / Follow Up: Brad Hernandez MD [Primary Care Provider] - Thiago Sharp MD [Med Staff - Pretzel Twisting Machine Operator] - Disposition Disposition (needs filled in before D/C Order can be placed): [facility] Facility
--- NOTE | 2023-03-25 09:32 | DS.PCM_ITS ---
Providers Date of Admission: 03/20/23 Date of Discharge: 03/25/23 Primary Care Physician: Dr. Brad Hernandez MD Reason For Visit: SYNCOPE Diagnosis Discharge Diagnosis (1) Syncope: Status: Acute Code(s): R55 - Syncope and collapse Qualifiers: Syncope type: unspecified Qualified Code(s): R55 - Syncope and collapse (2) History of Parkinson's disease: Status: Acute Code(s): Z86.69 - Personal history of other diseases of the nervous system and sense organs (3) Bipolar 1 disorder: Status: Acute Code(s): F31.9 - Bipolar disorder, unspecified (4) Hyponatremia: Status: Acute Code(s): E87.1 - Hypo-osmolality and hyponatremia Plan This is a 82-year-old male was admitted with lightheadedness and syncopal episode with hypotension, SBP in the 80s. BP improved with IV fluid. #Dizziness and syncopal episode most likely due to hypotension/autonomic dysfunction due to Parkinson's disease. No further syncopal episode. -EKG with sinus rhythm heart rate of 56 and left anterior fascicular block, QTc 467 -Patient awake and alert in ED -Orthostats negative -Cardiac telemetry also shows intermittent bradycardia. Sinus arrhythmia. 2D echo shows EF 65% with no evidence for?likely associated with trivial MR. Heart rate in 70s. No bradycardia in the last 2 days. No Xanax. 2D echo shows EF 65% with no major valvular abnormality or revealing cause for syncope. #Chronic hyponatremia Sodium decreased from 126-121 today. Serum osmolality was 266, TSH 4.04 but with free T 4.11. Cortisol 19.9. UA unremarkable, urine osmole's 390 with a urine sodium of 83. There was suspicion of SIADH in the past but patient is dehydrated therefore started on IV fluid. Monitor BMP. Patient also on Lexapro which raises suspicion for SIADH. 03/25: IV fluid did not show any increase in serum sodium therefore discontinued. Lexapro discontinued. Fluid restriction. Sodium tablet 1 g 3 times daily started. Monitor serum sodium in 1 week. Discussed with senior ios software engineer. 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 Improved to creatinine 1.09. STEPH resolved. - #Parkinson's disease -Continue home medications at this time and monitoring vitals #Bipolar disorder -Based on problem list -Does take several home medications, these have been continued at this time however would benefit from decreasing polypharmacy as this may have been a contributing factor but will rule out other etiologies first Holding Xanax, other home medications have been continued and patient has not had recurrence of symptoms #Hypothyroidism -Suspect hypothyroidism given patient is on Synthroid, will check TSH -Continue Synthroid TSH very slightly elevated but free T4 within normal limits, continue current Synthroid dose #DVT ppx: Lovenox subcut. Discussed with the senior ios software engineer Dr. Ruvalcaba. Fluid restriction 1200/day. Sodium tablet 1 g 3 times daily for 1 month supply prescribed. High-protein supplement for solute diuresis. Biostatistics Teacher in 2 weeks. Discharge medication reconciliation done. Discharge follow-up instructions completed. Discharge process discussed with the patient and all questions were answered to patient's satisfaction. Total time spent, exact 35 minutes on discharge meds reconciliation, examination, coordination of care with nurses and ancillary staff, review of imaging and blood test and discussion with the patient on follow-up instructions. Medications at Discharge Home Medications carbidopa 25 mg-levodopa 100 mg tablet 2 tab PO TID . 02/28/23 carbidopa ER 50 mg-levodopa 200 mg tablet,extended release 1 tab PO QHS . 02/28/23 lamotrigine 200 mg tablet 200 mg PO QHS . 90 days #90 tabs 02/28/23 levothyroxine 25 mcg tablet 25 mcg PO DAILY THYROID 02/28/23 quetiapine 25 mg tablet 25 mg PO QHS . 90 days #90 tabs 02/28/23 alprazolam 1 mg tablet 0.5 mg PO QHS anxiety 03/23/23 etodolac 400 mg tablet 400 mg PO BIDCM PRN arthritis pain 30 days #30 tabs 03/25/23 food supplemt, lactose-reduced 0.08 gram-1.5 kcal/mL oral liquid (Ensure Plus High Protein) 120 ml PO TIDCM #0 mL 03/25/23 polyethylene glycol 3350 17 gram oral powder packet 17 g PO BID #0 ea 03/25/23 sennosides 8.6 mg-docusate sodium 50 mg tablet (Stool Softener-Stimulant Laxative) 2 tab PO BID PRN PRN Constipation #0 tabs 03/25/23 sodium chloride 1,000 mg soluble tablet 1,000 mg PO TID 30 days #90 tabs 03/25/23 Physical Exam Narrative Seen and examined. Does not have any particular complaint. IV fluid normal and did not show increase in sodium sodium therefore discontinued patient has history of Parkinson disease and mood disorder. Physical exam General: Alert, Oriented x3, Cooperative HEENT: Atraumatic, PERRLA, EOMI, Normocephalic Oral: Oral mucosa dry. No Gingival or Mucosal Lesions/ Ulcerations Neck: Supple, No JVD, Negative Carotid Bruits Lungs: Air entry diminished in bilateral lung bases. No crepitation/rhonchi Cardiovascular: Regular rate, Regular Rhythm, Normal S1, Normal S2, No murmurs Abdomen: Bowel Sounds Present, Soft, Non Tender, Non-Distended : No renal angle tenderness. No suprapubic tenderness. Extremities: No edema, Capillary Refill Less than 3 Seconds Skin: No rashes, No breakdown Musculoskeletal: No Tenderness to Palpation of Joints or Extremities. Bilateral knee arthritis. Mild muscle stiffness at knee and hip joints. Neurological: Cranial nerves II-XII grossly intact, DTR 2+/4 and Symmetrical, Neuro grossly intact Psych/Mental Status: Flat affect Weight / BMI Weight Weight: 153 lb 7.068 oz Body Mass Index (BMI) 22.6 ABG / Lab / Microbiology Data 03/21/23 05:41 03/25/23 06:13 Laboratory: Laboratory Results - last 24 hr 03/24/23 16:02: Urine Osmolality 357, Ur Random Sodium 81, Urine Creatinine 48.30, Urine Potassium 34.0, Urine Chloride 94, Urine Urea Nitrogen 319 03/25/23 06:13: Sodium 121 L, Potassium 3.9, Chloride 89 L, Carbon Dioxide 25.0, Anion Gap 7, BUN 13, Creatinine 1.01, Estim Creat Clear Calc 55.51, Est GFR (MDRD) Af Amer 91, Est GFR (MDRD) Non-Af 75, BUN/Creatinine Ratio 12.9, Glucose 100, Calcium 8.5 Meaningful Use Info Meaningful Use Diagnoses (Choose all that apply): None applicable Discharge Plan Admission Admit Date/Time: 03/20/23 14:05 Attending Provider: Kenny Yang Primary Care Provider: Brad Hernandez Consulting Providers: Ethel Cordon Instructions Additional Instructions / Restrictions: Fluid restriction 1200 ml per day Outpatient BMP in 1 week and follow-up with Dr. Banks Discharge Orders/Prescriptions Prescriptions: New polyethylene glycol 3350 17 gram Powder In Packet 17 g PO BID Qty: 0 0RF sennosides-docusate sodium [Stool Softener-Stimulant Laxat] 8.6-50 mg Tablet 2 tab PO BID PRN PRN (Reason: Constipation) Qty: 0 0RF Ensure Plus High Protein 0.08 gram-1.5 kcal/mL Liquid 120 ml PO TIDCM Qty: 0 0RF sodium chloride 1,000 mg tablet,soluble 1,000 mg PO TID 30 Days Qty: 90 0RF Continued carbidopa-levodopa 50-200 mg tablet extended release 1 tab PO QHS Patient Comments: TAKE ONE TABLET BY MOUTH AT 9PM DIRECTED levothyroxine 25 mcg tablet 25 mcg PO DAILY carbidopa-levodopa 25-100 mg tablet 2 tab PO TID Patient Comments: DOSE INCREASE BY PCP TO 2 TID lamotrigine 200 mg tablet 200 mg PO QHS 90 Days Qty: 90 1RF quetiapine 25 mg tablet 25 mg PO QHS 90 Days Qty: 90 1RF alprazolam 1 mg tablet 0.5 mg PO QHS Changed etodolac 400 mg tablet 400 mg PO BIDCM PRN (Reason: arthritis pain) 30 Days Qty: 30 0RF Patient Comments: TAKE ONE TABLET BY MOUTH TWICE DAILY WITH meals Discontinued escitalopram oxalate 5 mg tablet 5 mg PO DAILY Qty: 90 1RF Rx Instructions: To be taken with 20 mg tablet for total daily dose of 25 mg escitalopram oxalate 20 mg tablet 20 mg PO DAILY Qty: 90 1RF Rx Instructions: To be taken with 5mg tablet for total daily dose of 25 mg Referrals / Follow Up: Brad Hernandez MD [Primary Care Provider] - Chayito Banks MD [Med Staff - Consulting] - Within 2 Weeks Thiago Sharp MD [Med Staff - Highway Maintenance Crew Worker] - Disposition Disposition (needs filled in before D/C Order can be placed): Long Term Facility Charges/Coding Visit Charges Inpatient E&M: 61689 Disch Hosp >30min
[2023-03-25 10:27] VITALS: BP 103/70; PULSE 72; RESP 16; TEMP 36.7; O2SAT 96
[2023-03-25] MEDS: Escitalopram Oxalate 10 MG Tablet 5 MG PO (10:29)
[2023-03-25] MEDS: Polyethylene Glycol 3350 17 GM PACKET PO (10:29)
[2023-03-25] MEDS: Escitalopram Oxalate 20 MG Tablet PO (10:30)
[2023-03-25] MEDS: Enoxaparin 40 MG/0.4 ML Syringe SC (10:30)
[2023-03-25] MEDS: Sodium Chloride 1 GM Tablet PO (11:27)
--- NOTE | 2023-03-25 11:50 | NURSING ---
Report called to Gregory Guerra.
== END 2023-03-25 12:32 | disposition skilled nursing facility (03) | DRG 42 ==
LOC: ED 12:58 → PCU 15:34
PROVIDERS: Admitting Provider Internal Medicine; Emergency Provider Emergency Medicine; PCP Family Medicine; Visit Provider Internal Medicine
DX: G20 Parkinson's disease (principal); E87.1 Hypo-osmolality and hyponatremia; N17.9 Acute kidney failure, unspecified; F31.9 Bipolar disorder, unspecified; N18.32 Chronic kidney disease, stage 3b; I95.9 Hypotension, unspecified; E03.9 Hypothyroidism, unspecified; I44.4 Left anterior fascicular block; R00.1 Bradycardia, unspecified; I49.8 Other specified cardiac arrhythmias; Z66 Do not resuscitate
CPT/HCPCS: 36415; 71045; 80048; 80076; 81001; 82436; 82533; 82570; 83735; 83930; 83935; 84133; 84300; 84439; 84443; 84484; 84540; 85025; 92526; 92610; 93005; 93306; 97110; 97116; 97162; 97166; 97530; 97535; 99285; J7030; J7040; A4216

== ENCOUNTER 2023-09-03 03:39 | Emergency (ER) | payer MEDICAID, SELFPAY ==
[2023-09-03 03:39] VITALS: BP 129/69; PULSE 69; RESP 16; TEMP 36.4; O2SAT 100; BMI 25.7
--- NOTE | 2023-09-03 03:59 | CT_ITS ---
INDICATION: fall/trauma EXAMINATION: CT BRAIN - CT Head or Brain W/O Contrast Injection TECHNIQUE: Serial CT axial images were obtained of the head without intravenous contrast. A radiation dose optimization technique was used for this scan. COMPARISON: None. Findings: Serial CT axial images of the head without contrast. Mild motion artifact at the vertex. Asymmetric head positioning. BRAIN PARENCHYMA: Diffuse periventricular hypoattenuation likely chronic white matter ischemic changes. Moderate diffuse volume loss. Dense falx calcifications without evidence of intraparenchymal hemorrhage or hyperattenuating extra-axial fluid collection. Basal ganglia calcifications as well. VASCULAR STRUCTURES: Atherosclerotic vascular calcifications. BONES: Frontoethmoid sinus and sphenoid sinus mucosal thickening with scattered opacification. SCALP/REMAINING SOFT TISSUES: Right frontal scalp hematoma. ASPECTS Score for Acute Strokes, if applicable: 10 CT/Brain/Head without Contrast IMPRESSION: Age-related changes as above, without evidence of acute intracranial hemorrhage in this noncontrast head CT. Of note: [employer] artificial intelligence screening software incorrectly identifies falx calcifications as hemorrhage. Scalp injury and sinus disease. Electronically Signed: Christopher Phoenix MD at 5:36 EST ,
--- NOTE | 2023-09-03 03:59 | CT_ITS ---
INDICATION: neck trauma EXAMINATION: CT SPINE - CT Spine Cervical W/O Contrast Injection COMPARISON: None. A radiation dose optimization technique was used for this scan. Findings: Serial CT axial images through the cervical spine, with coronal and sagittal reformatted series. BONES: Cervical straightening. No evidence of cervical spine fracture or subluxation. No concerning bony lesion or abnormal sclerosis to suggest lesion. Sphenoethmoid sinus mucosal thickening. DISCS/JOINTS: Moderate to severe multilevel bilateral neuroforaminal narrowing. SOFT TISSUES: Biapical calcified pleural plaques. CT/Spine Cervical without Contras IMPRESSION: Cervical spine without evidence of acute fracture. Electronically Signed: Christopher Phoenix MD at 5:46 EST ,
--- NOTE | 2023-09-03 04:00 | EKG12_ITS ---
Test Reason : FALL Blood Pressure : / mmHG Vent. Rate : 072 BPM Atrial Rate : 072 BPM P-R Int : 196 ms QRS Dur : 084 ms QT Int : 424 ms P-R-T Axes : 073 -44 082 degrees QTc Int : 464 ms Normal sinus rhythm Left axis deviation Minimal voltage criteria for LVH, may be normal variant ( R in aVL ) Abnormal ECG Confirmed by EVE PAULSON, LATOSHA ([id number]), editorial writer ANNA BEST ([id number]) on 09/03/2023 1:14:15 PM Referred By: Uriel Martinez Confirmed By:LATOSHA PRADO MD
--- NOTE | 2023-09-03 04:01 | EDS_ITS ---
HPI HPI - Fall History of Present Illness Chief Complaint: Fall Informant: patient, family and EMS Narrative Narrative: Patient presents just prior to 4 AM due to an unwitnessed fall in the middle of the night. He has Parkinson's, he uses a walker and looked like he had used his walker and trying to walk to the bathroom, due to being found on the floor right outside of it with his walker a little ways back behind him. The patient does not recall the fall or getting up. Family states they heard him fall and they got up to assist him, after they got him up to a chair, he passed out briefly, or came very close they are not 100% sure patient is complaining of neck pain and has pain nowhere else. [facility] Medical History Arthritis Bipolar 1 disorder Elbow fracture, left Hearing problem History of back problems Hyponatremia Hypotension Hypothyroidism Parkinson disease Pelvic fracture Home Medications carbidopa 25 mg-levodopa 100 mg tablet 2 tab PO TID . 02/28/23 [History Last Taken 03/20/23] carbidopa ER 50 mg-levodopa 200 mg tablet,extended release 1 tab PO QHS . 02/28/23 [History Last Taken 03/19/23] levothyroxine 25 mcg tablet 25 mcg PO DAILY THYROID 02/28/23 [History Last Taken 03/20/23] food supplemt, lactose-reduced 0.08 gram-1.5 kcal/mL oral liquid (Ensure Plus High Protein) 120 ml PO TIDCM #0 mL 03/25/23 [Rx Last Taken Unknown] polyethylene glycol 3350 17 gram oral powder packet 17 g PO BID #0 ea 03/25/23 [Rx Last Taken Unknown] sennosides 8.6 mg-docusate sodium 50 mg tablet (Stool Softener-Stimulant Laxative) 2 tab PO BID PRN PRN Constipation #0 tabs 03/25/23 [Rx Last Taken Unknown] sodium chloride 1,000 mg soluble tablet 1,000 mg PO TID 30 days #90 tabs 03/25/23 [Rx Last Taken Unknown] alprazolam 1 mg tablet 1 mg PO QHS anxiety #30 tabs 07/26/23 [Rx Last Taken Unknown] escitalopram oxalate 20 mg tablet 20 mg PO DAILY . #90 tabs 12/13/23 [Rx Last Taken Unknown] escitalopram oxalate 5 mg tablet 5 mg PO DAILY . #90 tabs 08/29/23 [Rx Last Taken Unknown] lamotrigine 200 mg tablet 200 mg PO QHS . 90 days #90 tabs 08/29/23 [Rx Last Taken Unknown] quetiapine 25 mg tablet 25 mg PO QHS . 90 days #90 tabs 08/29/23 [Rx Last Taken Unknown] Allergy/AdvReac Type Severity Reaction Status Date / Time No Known Allergies Allergy Verified 09/03/23 03:42 Family History Other Anxiety Cancer Diabetes Myocardial infarction Social History Smoking Status: Never smoker alcohol intake: never substance use type: does not use what type of physical activity do you participate in: none ROS ROS ED Constitutional Constitutional ED: Denies chills or fever(s) Eyes Eyes: Denies change in vision or diplopia ENT ENT ED: Denies ear pain, epistaxis, facial pain or rhinorrhea Cardiovascular Cardiovascular: Denies chest pain or palpitations Respiratory/Chest Respiratory/Chest: Denies cough or dyspnea Gastrointestinal Gastrointestinal: Denies abdominal pain, diarrhea, melena, nausea or vomiting Genitourinary Genitourinary ED: Denies dysuria or hematuria Musculoskeletal Musculoskeletal: Reports neck pain; Denies back pain or extremity pain Integumentary Denies abscess, Abrasions, laceration or rash Neurologic Neurologic: Reports confusion and tremor(s); Denies headache(s), paresthesias or weakness EXAM Physical Exam Const Vital Signs: 09/03/23 03:39 09/03/23 03:39 Temperature 97.5 F L Temperature Source Temporal Pulse Rate 69 Respiratory Rate 16 Respiratory Effort Normal Non-Labored Respiratory Depth Normal Respiratory Pattern Normal Blood Pressure 129/69 H Blood Pressure Mean 89 Pulse Ox 100 Oxygen Delivery Method Room Air Room Air Positive well nourished and well developed General Appearance ED: well developed and NAD HEENT Reports TM's clear and nasal mucous membranes and turbinates normal atraumatic Face and Sinus: Negative for facial tenderness Tympanic Membrane ED: Yes TM's clear Eyes PERRL and EOMs intact bilaterally Visual Acuity: other Other Details: no entrapment or pain with extraocular movements Neck Neck Narrative: C-collar in place. Mild diffuse neck tenderness no step-off or obvious signs of trauma. General: tenderness Chest Wall inspection of chest normal and palpation of chest normal Chest: symmetrical chest wall rise; Negative for crepitus or tenderness Resp normal respiratory effort and clear to auscultation bilaterally Percussion: other equal BS bilat Cardio no murmurs Rate: regular rate Rhythm: regular rhythm GI normal to inspection, nondistended, normoactive bowel sounds, soft to palpation and non-tender Back/Spine normal ROM Back/Spine Narrative: No pain in the back with sitting the patient up. Cervical Spine: cervical spine tenderness Thoracic Spine / Upper Back: Negative for thoracic spinal tenderness Lumbar Spine / Lower Back: Negative for lumbar spinal tenderness Extremity normal to inspection and full ROM General Extremety ED: Negative for tenderness Neuro CN's II-XII intact bilaterally, moves all extremities, no focal motor deficits and no sensory deficits noted Dilshad Coma Scale: document GCS findings Spontaneous Obeys Commands Confused 14 Sensorium / Orientation: awake, alert, oriented to person and orientation impaired Psych Psych Narrative: Mild psychomotor agitation, and intention tremor Attitude: agitated Skin no wounds Lesions: no lesions Rashes: no rashes MDM MDM MDM Narrative Medical decision making narrative: Patient complaining of severe neck pain, but then seem to potentially have a syncopal episode after they got him to a chair right after the fall. Given that the patient is amnestic to the event, completely unknown if he tripped, or had a syncopal event that caused the fall, or any other prodromal event, although it is likely that given that he was using his walker and has a history of Parkinson's and the walker was away from him, that this was a fall related to those 2 things. We did send him for CT of the head and cervical spine. I reviewed the images and the report from the radiologist which I agree with, however since the interpretation was fairly generic regarding lack of a cervical spine fracture and he has lots of degenerative abnormalities, I called and discussed with the radiologist regarding the degenerative changes of C1 and 2 including the dens, to ensure that he did not think any of this was indicative of an acute fracture. He reviewed these images again, and confirms to me that these appear to all be chronic degenerative change and no evidence of an acute fracture here. I did also discuss with the thin film technician who confirmed that at the time of this set of images, he was not moving to create artifact. Given all of this, I am more comfortable clearing his c-collar. In removing it, he is able to move his head [id number] without any significant pain or neurologic symptoms, and is doing well. And interpreting his EKG and labs, the EKG is normal, and his labs show basically mild dehydration so he was given IV fluids that he had completed at this point. Nurses were able to get him up and to take some steps. He was a little unsteady but family states he was not any worse than usual especially without using a walker which they do not have with him. Patient felt well. He has not been able to urinate, probably due to being a little dry. He denies having any urinary symptoms lately, and family prefers to take him home without waiting for him to urinate. I am okay with this, since he has no symptoms, is not orthostatic, and his vital signs are normal. The rest of his workup is unremarkable, advised to encourage him to drink fluids and follow-up with his doctor. They are comfortable with that plan. Lab Data Attestation: I reviewed the patient's lab results. Labs: Laboratory Results - last 24 hr 09/03/23 09/03/23 03:29 06:21 WBC 9.5 RBC 3.45 L Hgb 11.9 L Hct 35.1 L MCV 101.7 H MCH 34.5 H MCHC 33.9 RDW Std Deviation 46.3 H RDW Coeff of Morena 12.3 Plt Count 254 MPV 9.0 Immature Gran % (Auto) 0.500 Neut % (Auto) 72.8 H Lymph % (Auto) 12.3 L Claiborne % (Auto) 9.4 Eos % (Auto) 4.5 Baso % (Auto) 0.5 Absolute Neuts (auto) 6.9 Absolute Lymphs (auto) 1.17 Nucleated RBC % 0 Sodium 131 L Potassium 4.5 Chloride 96 L Carbon Dioxide 28.0 Anion Gap 7 BUN 20 H Creatinine 1.31 H Estim Creat Clear Calc 42.73 Est GFR (MDRD) Af Amer 67 Est GFR (MDRD) Non-Af 56 L BUN/Creatinine Ratio 15.3 Glucose 133 H Calcium 9.0 Troponin I High Sens 10 14 Radiography Chest X-Ray - ED: 1 View, Read by ED Physician, Normal, Mediastinum, No Acute Disease and No Infiltrates Diagnostic Testing: Clinical Impression(s) from Imaging Studies Brain CT 09/03/23 03:59 IMPRESSION: Age-related changes as above, without evidence of acute intracranial hemorrhage in this noncontrast head CT. Of note: [employer] artificial intelligence screening software incorrectly identifies falx calcifications as hemorrhage. Scalp injury and sinus disease. Electronically Signed: Christopher Phoenix MD at 5:36 EST , Cervical Spine CT 09/03/23 03:59 IMPRESSION: Cervical spine without evidence of acute fracture. Electronically Signed: Christopher Phoenix MD at 5:46 EST , ADDENDUM: 09/03/23 0604 IMPRESSION: undefined Chest X-Ray 09/03/23 04:35 IMPRESSION: Stable chest with no acute disease. Electronically Signed: Christopher Phoenix MD at 6:14 EST , ADDENDUM Radiation CTDIvol 17.96 Radiation DLP 890.35 Above results reviewed with Dr. Martinez at 0552 hours eastern time 09/03/2023 to include degenerative change of the C1 and C2 levels without fracture. Electronically Signed: Christopher Phoenix MD at 5:57 EST Reading Location ID and State: [id number] / [place] Rhythm Strip Rhythm Strip: Sinus Rhythm Rate: 70 Ectopy: None EKG Initial EKG: Attestation: I personally reviewed and interpreted this EKG as follows: Interpretation: Sinus Rhythm, No Acute Injury Pattern and LAFB Prior EKG tracings: available for review Prior: Unchanged Management Discussion w/another healthcare provider: Radiologist Discharge Plan Triage Chief Complaint: Fall ED Provider: Uriel Martinez Dx/Rx/DC Orders Clinical Impression: Acute cervical myofascial strain, Near syncope, Mild dehydration, Accidental fall Instructions: ED Dehydration (Adult) Prescriptions: No Action carbidopa-levodopa 50-200 mg tablet extended release 1 tab PO QHS Patient Comments: TAKE ONE TABLET BY MOUTH AT 9PM DIRECTED levothyroxine 25 mcg tablet 25 mcg PO DAILY carbidopa-levodopa 25-100 mg tablet 2 tab PO TID Patient Comments: DOSE INCREASE BY PCP TO 2 TID escitalopram oxalate 5 mg tablet 5 mg PO DAILY Qty: 90 1RF Rx Instructions: To be taken with 20 mg tablet for total daily dose of 25 mg escitalopram oxalate 20 mg tablet 20 mg PO DAILY Qty: 90 1RF Rx Instructions: To be taken with 5mg tablet for total daily dose of 25 mg lamotrigine 200 mg tablet 200 mg PO QHS 90 Days Qty: 90 1RF quetiapine 25 mg tablet 25 mg PO QHS 90 Days Qty: 90 1RF polyethylene glycol 3350 17 gram Powder In Packet 17 g PO BID Qty: 0 0RF sennosides-docusate sodium [Stool Softener-Stimulant Laxat] 8.6-50 mg Tablet 2 tab PO BID PRN PRN (Reason: Constipation) Qty: 0 0RF Ensure Plus High Protein 0.08 gram-1.5 kcal/mL Liquid 120 ml PO TIDCM Qty: 0 0RF sodium chloride 1,000 mg tablet,soluble 1,000 mg PO TID 30 Days Qty: 90 0RF alprazolam 1 mg tablet 1 mg PO QHS Qty: 30 2RF Primary Care Provider: Brad Hernandez Referrals: Brad Hernandez MD [Primary Care Provider] - 3-5 Days if not improving Disposition Disposition: Home, Self Care
[2023-09-03] MEDS: Ondansetron 4 MG/2 ML Vial IV (04:06)
[2023-09-03] MEDS: Morphine 2 MG/ML Syringe IV (04:06)
[2023-09-03 04:17] LABS: Absolute Lymphocyte Count 1.17 X10^3/uL (0.83-4.51); Absolute Neutrophil Count 6.9 X10^3/uL (2.0-7.7); Basophil# 0.05 X10^3/uL; Basophil% 0.5 % (0-1); Eosinophil# 0.43 X10^3/uL; Eosinophils% 4.5 % (0-5); Hematocrit 35.1 % (40-54); Hemoglobin 11.9 g/dL (13.0-16.5); Lymphocyte # 1.17 X10^3/ul (0.83-4.51); Lymphocyte % 12.3 % (19-41); Mean Corp Hgb Conc 33.9 g/dL (32-36); Mean Corpuscular Hgb 34.5 pg (27.0-32.0); Mean Corpuscular Volume 101.7 fL (80-94); Monocyte# 0.89 X10^3/uL; Monocyte% 9.4 % (0-10); NRBC Flagged by Analyzer 0 % (0-5); Neutrophil # 6.92 X10^3/uL (2.7-7.7); Neutrophil % 72.8 % (47-70); Platelet Count 254 K/mm3 (150-450); RBC Distribution Width CV 12.3 % (11.6-14.6); RBC Distribution Width SD 46.3 fl (35.1-43.9); Red Blood Count 3.45 M/mm3 (4.6-6.2); White Blood Count 9.5 K/mm3 (4.4-11.0)
--- NOTE | 2023-09-03 04:35 | RAD_ITS ---
INDICATION: fall EXAMINATION/TECHNIQUE: X-RAY - XR Chest 1 View COMPARISON: 03/20/2023 chest radiograph. Findings: Single frontal view of the chest. LUNG PARENCHYMA: No acute focal airspace disease or mass lesion. PLEURA: Elevation of the right hemidiaphragm. No pleural effusion. No pneumothorax. HEART/GREAT VESSELS: Cardiomediastinal silhouette is unremarkable. BONES: Osseous structures are unremarkable for age. RAD/Chest 1 View (Portable) IMPRESSION: Stable chest with no acute disease. Electronically Signed: Christopher Phoenix MD at 6:14 EST ,
[2023-09-03 04:43] LABS: Anion Gap 7 (5-15); BUN 20 mg/dL (7-18); BUN/Creat Ratio 15.3 RATIO (10-20); Chloride 96 mmol/L (98-107); Creatinine, Serum 1.31 mg/dL (0.70-1.30); EST Glomerular Filtration Rate 56 mL/min (>60); Est Glom Filt Rate - Afr Amer 67 mL/min (>60); Estimated Creatinine Clearance 42.73 ml/min; Glucose 133 mg/dL (74-106); Potassium 4.5 mmol/L (3.5-5.1); Sodium Level 131 mmol/L (136-145); Troponin-I HS (w/2H Reflex) 10 pg/mL (3.0-78.0)
[2023-09-03] MEDS: 0.9% Normal Saline (500mL Bag) 500 ML 999 ML IV (05:21)
[2023-09-03] MEDS: fentaNYL 100 MCG/2 ML Ampul 50 MCG IV (05:53)
[2023-09-03 06:15] LABS: Reflex Troponin-HS? (from REC) Y
[2023-09-03 06:44] LABS: Troponin-I HS 14 pg/mL (3.0-78.0)
[2023-09-03 07:19] VITALS: BP 97/62; PULSE 66; RESP 16; O2SAT 99
== END 2023-09-03 07:20 | disposition home or self-care (01) ==
PROVIDERS: Emergency Provider Emergency Medicine; PCP Family Medicine; Referring Provider Emergency Medicine; Visit Provider Emergency Medicine
DX: R55 Syncope and collapse (principal); F31.9 Bipolar disorder, unspecified; E86.0 Dehydration; G20.C Parkinsonism, unspecified; S16.1XXA Strain of muscle, fascia and tendon at neck level, initial encounter; W19.XXXA Unspecified fall, initial encounter; Z79.899 Other long term (current) drug therapy; E03.9 Hypothyroidism, unspecified
CPT/HCPCS: 70450; 71045; 72125; 80048; 84484; 85025; 93005; 96374; 96375; 99284; J7040; A4216; J2405